=== PATIENT | female | born 1965 | race Caucasian/White ===

== ENCOUNTER 2017-09-26 15:51 | Emergency (ER) | payer MEDICARE, MEDICAID ==
[~2017-09-26] VITALS: Ht 584.7 cm; Wt 47.7 kg
[~2017-09-26 15:51] MED LIST: BACL10TA PO; CALCITROL; SACC250C PO; TRAM50TA2 PO; ZOLP10TA5 PO
[2017-09-26] MEDS ORDERED: ketorolac tromethamine 15mg/ml inj. IM ONE (17:20)
[2017-09-26] MEDS ORDERED: NAPR-56 PO (17:28)
[2017-09-26 17:40] VITALS: BP 121/66
== END 2017-09-26 17:41 | disposition home or self-care (01) ==
LOC: ER 15:52
DX: M25.511 Pain in right shoulder (principal); G89.29 Other chronic pain; Z88.8 Allergy status to other drugs, medicaments and biological substances; Z79.899 Other long term (current) drug therapy
CPT/HCPCS: 96372; 99283; J1885

== ENCOUNTER 2017-11-29 14:42 | Emergency (ER) | payer MEDICARE, MEDICAID ==
[~2017-11-29] VITALS: Ht 162.6 cm; Wt 52.0 kg
[2017-11-29 15:07] LABS: BASOPHILS % (AUTO) 0.6 % (0-1); EOSINOPHILS % (AUTO) 0.2 % (0-6); HEMATOCRIT 37.9 % (35.0-45.0); HEMOGLOBIN 12.7 g/dl (12.0-16.0); LYMPHOCYTES # (AUTO) 1.4 X10'3 (1.1-4.8); LYMPHOCYTES % (AUTO) 17.6 % (21-51); MEAN CORPUSCULAR HEMOGLOBIN 29.9 PG (27.0-31.0); MEAN CORPUSCULAR HGB CONC 33.5 % (33.0-36.5); MEAN CORPUSCULAR VOLUME 89.1 FL (78-98); MEAN PLATELET VOLUME 8.9 FL (7.4-10.4); MONOCYTES # (AUTO) 0.6 X10'3 (0-0.9); NEUTROPHILS # (AUTO) 5.9 X10'3 (1.8-7.7); NEUTROPHILS % (AUTO) 74.6 % (42-75); PLATELET COUNT 202 X10'3 (140-440); RED BLOOD COUNT 4.26 X10'6 (4.20-5.60); RED CELL DISTRIBUTION WIDTH 13.3 % (11.5-14.5)
[2017-11-29 15:17] LABS: PARTIAL THROMBOPLASTIN TIME 29 SECONDS (22-32); PROTHROMBIN TIME 10.7 SECONDS (9.0-12.0)
[2017-11-29] MEDS ORDERED: ketorolac tromethamine 15mg/ml inj. IM ONE (15:25)
[2017-11-29 15:26] LABS: ALANINE AMINOTRANSFERASE 36 U/L (12-78); ALBUMIN 3.2 G/DL (3.4-5.0); ALBUMIN/GLOBULIN RATIO 0.8 (1.1-1.5); ALKALINE PHOSPHATASE 73 IU/L (46-116); ANION GAP 5 (8-16); ASPARTATE AMINO TRANSFERASE 37 U/L (10-37); BILIRUBIN,TOTAL 0.3 MG/DL (0.1-1.0); BLOOD UREA NITROGEN 18 MG/DL (7-18); CALCIUM 8.7 MG/DL (8.5-10.1); CHLORIDE 105 MMOL/L (99-107); GLUCOSE 85 MG/DL (70-104); POTASSIUM 4.2 MMOL/L (3.5-5.1); SODIUM 141 MMOL/L (135-145); TOTAL CARBON DIOXIDE 30.9 MMOL/L (24-32); TOTAL PROTEIN 7.1 G/DL (6.4-8.2); eGFR > 90 ML/MIN
[2017-11-29 16:27] VITALS: BP 103/68
== END 2017-11-29 16:29 | disposition home or self-care (01) ==
LOC: ER 14:43
DX: M75.51 Bursitis of right shoulder (principal); M19.90 Unspecified osteoarthritis, unspecified site; M41.84 Other forms of scoliosis, thoracic region; K21.9 Gastro-esophageal reflux disease without esophagitis; G89.29 Other chronic pain; G82.20 Paraplegia, unspecified; Z90.49 Acquired absence of other specified parts of digestive tract; Z90.710 Acquired absence of both cervix and uterus; Z98.890 Other specified postprocedural states; Z88.8 Allergy status to other drugs, medicaments and biological substances; Z79.899 Other long term (current) drug therapy
CPT/HCPCS: 36415; 71045; 73030; 80053; 84484; 85025; 85610; 85730; 93005; 96372; 99285; J1885

== ENCOUNTER 2018-04-05 15:22 | Inpatient (IN) | payer MEDICARE, MEDICAID ==
[~2018-04-05] VITALS: Ht 170.2 cm; Wt 47.7 kg
[2018-04-05 17:27] LABS: BASOPHILS % (AUTO) 0.1 % (0-1); EOSINOPHILS % (AUTO) 0 % (0-6); HEMATOCRIT 41.2 % (35.0-45.0); HEMOGLOBIN 13.4 g/dl (12.0-16.0); LYMPHOCYTES # (AUTO) 1.2 X10'3 (1.1-4.8); LYMPHOCYTES % (AUTO) 19.4 % (21-51); MEAN CORPUSCULAR HGB CONC 32.6 % (33.0-36.5); MEAN CORPUSCULAR VOLUME 88.8 FL (78-98); MEAN PLATELET VOLUME 9.6 FL (7.4-10.4); MONOCYTES # (AUTO) 0.3 X10'3 (0-0.9); MONOCYTES % (AUTO) 5.1 % (2-12); NEUTROPHILS # (AUTO) 4.9 X10'3 (1.8-7.7); NEUTROPHILS % (AUTO) 75.4 % (42-75); PLATELET COUNT 229 X10'3 (140-440); RED BLOOD COUNT 4.63 X10'6 (4.20-5.60); RED CELL DISTRIBUTION WIDTH 13.5 % (11.5-14.5); WHITE BLOOD COUNT 6.4 X10'3 (4.5-11.0)
[2018-04-05 17:41] LABS: INR 1.1 INR; PARTIAL THROMBOPLASTIN TIME 29 SECONDS (22-32); PROTHROMBIN TIME 10.7 SECONDS (9.0-12.0)
[2018-04-05 17:45] LABS: ALANINE AMINOTRANSFERASE 18 U/L (12-78); ALBUMIN 3.9 G/DL (3.4-5.0); ALKALINE PHOSPHATASE 83 IU/L (46-116); ANION GAP 7 (8-16); ASPARTATE AMINO TRANSFERASE 14 U/L (10-37); BILIRUBIN,TOTAL 0.3 MG/DL (0.1-1.0); BLOOD UREA NITROGEN 21 MG/DL (7-18); CALCIUM 9.2 MG/DL (8.5-10.1); CHLORIDE 104 MMOL/L (99-107); CREATININE 0.42 MG/DL (0.40-0.90); GLUCOSE 98 MG/DL (70-104); POTASSIUM 3.7 MMOL/L (3.5-5.1); SODIUM 141 MMOL/L (135-145); TOTAL CARBON DIOXIDE 30.2 MMOL/L (24-32); eGFR > 90 ML/MIN
[2018-04-05] MEDS: fentaNYL/PF 50MCG/1 ML 2ML syringe IV ONE ×2 (17:55→18:38)
[2018-04-05 18:13] LABS: CLARITY,URINE CLEAR (Clear); COLOR,URINE YELLOW (Yellow); GLUCOSE, URINE NEGATIVE (Neg); KETONES,URINE NEGATIVE (Neg); LEUKOCYTE ESTERASE ,URINE NEGATIVE (Neg); NITRITES, URINE POSITIVE (Neg); OCCULT BLOOD,URINE NEGATIVE (Neg); PROTEIN,URINE NEGATIVE (Neg); UA COLLECTION TYPE FOLEY CATH; UROBILINOGEN,URINE 0.2 E.U/dL (0.2-1.0)
[2018-04-05 18:24] LABS: BACTERIA,URINE 4+ /HPF (Neg); RBC,URINE 0-2 /HPF (0-2); SQUAMOUS EPITHELIAL CELL,UR FEW /LPF (FEW)
[2018-04-05 18:25] LABS: MUCUS STRANDS NONE SEEN /LPF (Neg)
[2018-04-05] MEDS ORDERED: BACL20TA PO (18:46)
[2018-04-05] MEDS ORDERED: TRAM50TA2 PO (18:46)
[2018-04-05] MEDS ORDERED: ZOLP10TA5 PO (18:47)
[2018-04-05] MEDS ORDERED: temazepam 15mg capsule PO PRN (21:00)
[2018-04-05] MEDS ORDERED: normal saline 500ml IV soln 1,000 ML IV ONE (21:20)
[2018-04-05] MEDS ORDERED: normal saline 250ml IV soln 250 ML IV ONE (22:25)
[2018-04-05] MEDS: normal saline 1000ml 1,000 ML IV SCH (22:25)
[2018-04-05] MEDS ORDERED: magnesium hydroxide 30ml (MOM) UD suspension PO PRN (22:25)
[2018-04-05] MEDS ORDERED: non-formulary drug (Zolpidem Tartrate* (Ambien*) 1 TAB) PO PRN (22:25)
[2018-04-05] MEDS ORDERED: HYDROmorphone 1 mg/ml syringe IV PRN (22:25)
[2018-04-05] MEDS ORDERED: diphenhydrAMINE 50 mg/ml inj IV PRN (22:25)
[2018-04-05] MEDS ORDERED: metoclopramide 5 mg/ml inj IV PRN (22:25)
[2018-04-05] MEDS ORDERED: acetaminophen 650mg rectal suppository RC PRN (22:25)
[2018-04-05] MEDS ORDERED: morphine 2 MG/ML inj. syringe IV PRN (22:25)
[2018-04-05] MEDS ORDERED: ondansetron/PF 4mg/2ml inj IV PRN (22:25)
[2018-04-05] MEDS ORDERED: diphenhydrAMINE 25mg capsule PO PRN (22:25)
[2018-04-05] MEDS ORDERED: bisacodyl 10mg suppository rectal RC PRN (22:25)
[2018-04-05] MEDS ORDERED: mag hydrox/Alum hydrox/simeth 30ml oral suspension PO PRN (22:25)
[2018-04-05] MEDS: pantoprazole 40 MG vial IV SCH (23:12)
[2018-04-05 23:35] VITALS: BP 134/48
[2018-04-05 23:44] LABS: INR 1.1 INR; PARTIAL THROMBOPLASTIN TIME 26 SECONDS (22-32); PROTHROMBIN TIME 10.9 SECONDS (9.0-12.0)
[2018-04-05 23:52] LABS: MAGNESIUM 1.7 MG/DL (1.5-2.4); PHOSPHORUS 2.9 MG/DL (2.3-4.5)
[2018-04-06] MEDS: CefTRIAXone/D5W-Rocephin 1gm 50 ML IV SCH ×2 (01:41→07:10)
[2018-04-06 06:00] VITALS: BP 86/57
[2018-04-06 06:02] LABS: BASOPHILS % (AUTO) 0 % (0-1); EOSINOPHILS # (AUTO) 0.1 X10'3 (0-0.9); EOSINOPHILS % (AUTO) 0.9 % (0-6); HEMATOCRIT 32.3 % (35.0-45.0); HEMOGLOBIN 10.6 g/dl (12.0-16.0); LYMPHOCYTES # (AUTO) 1.3 X10'3 (1.1-4.8); LYMPHOCYTES % (AUTO) 14.2 % (21-51); MEAN CORPUSCULAR HEMOGLOBIN 28.9 PG (27.0-31.0); MEAN CORPUSCULAR HGB CONC 32.7 % (33.0-36.5); MEAN CORPUSCULAR VOLUME 88.4 FL (78-98); MEAN PLATELET VOLUME 9.9 FL (7.4-10.4); MONOCYTES # (AUTO) 0.6 X10'3 (0-0.9); MONOCYTES % (AUTO) 6.6 % (2-12); NEUTROPHILS # (AUTO) 7.1 X10'3 (1.8-7.7); NEUTROPHILS % (AUTO) 78.3 % (42-75); PLATELET COUNT 183 X10'3 (140-440); RED BLOOD COUNT 3.66 X10'6 (4.20-5.60); RED CELL DISTRIBUTION WIDTH 13.8 % (11.5-14.5); WHITE BLOOD COUNT 9.1 X10'3 (4.5-11.0)
[2018-04-06 07:02] LABS: ALANINE AMINOTRANSFERASE 15 U/L (12-78); ALBUMIN 3.3 G/DL (3.4-5.0); ALKALINE PHOSPHATASE 70 IU/L (46-116); ANION GAP 9 (8-16); ASPARTATE AMINO TRANSFERASE 12 U/L (10-37); BILIRUBIN,TOTAL 0.3 MG/DL (0.1-1.0); BLOOD UREA NITROGEN 19 MG/DL (7-18); BUN/CREATININE RATIO 44.2 (6.6-38.0); CALCIUM 8.5 MG/DL (8.5-10.1); CHLORIDE 107 MMOL/L (99-107); CREATININE 0.43 MG/DL (0.40-0.90); GLUCOSE 110 MG/DL (70-104); POTASSIUM 3.8 MMOL/L (3.5-5.1); SODIUM 141 MMOL/L (135-145); TOTAL CARBON DIOXIDE 25.2 MMOL/L (24-32); TOTAL PROTEIN 6.6 G/DL (6.4-8.2); eGFR > 90 ML/MIN
[2018-04-06] MEDS: pantoprazole 40 MG vial IV SCH (07:10)
[2018-04-06] MEDS ORDERED: traMADol 50MG tablet PO SCH (08:00)
[2018-04-06] MEDS: docusate sod 100mg capsule PO SCH ×2 (08:00→20:00)
[2018-04-06] MEDS ORDERED: CefTRIAXone/D5W-Rocephin 1gm 50 ML IV SCH (08:00)
[2018-04-06] MEDS ORDERED: BACLOFEN PO SCH (08:00)
[2018-04-06] MEDS: baclofen 10mg tablet PO SCH ×3 (09:54→19:28)
[2018-04-06] MEDS: normal saline 1000ml 1,000 ML IV SCH ×2 (09:59→19:24)
[2018-04-06 10:00] VITALS: BP 95/39
[2018-04-06] MEDS ORDERED: TRAM50TA2 PO (10:04)
[2018-04-06] MEDS: HYDROcodone/acetaminophen 5mg/325mg tablet PO PRN ×3 (12:46→23:46)
[2018-04-06] MEDS ORDERED: CALC0.2511 PO (17:04)
[2018-04-06 18:00] VITALS: BP 100/56
[2018-04-06] MEDS: traMADol 50MG tablet PO PRN (18:28)
[2018-04-06] MEDS: calcitriol 0.25mcg capsule PO SCH (19:27)
[2018-04-06] MEDS ORDERED: CALCITRIOL 0.25 MCG PO SCH (20:00)
[2018-04-06 22:00] VITALS: BP 114/61
[2018-04-07] VITALS (18 sets, daily range): BP systolic 83–121; BP diastolic 39–64
[2018-04-07] MEDS: traMADol 50MG tablet PO PRN ×3 (00:17→19:14)
[2018-04-07] MEDS: zolpidem 5mg tablet PO PRN (00:17)
[2018-04-07] MEDS: normal saline 1000ml 1,000 ML IV SCH ×2 (04:25→14:25)
[2018-04-07 06:36] LABS: BASOPHILS % (AUTO) 0.3 % (0-1); EOSINOPHILS # (AUTO) 0.1 X10'3 (0-0.9); HEMATOCRIT 24.2 % (35.0-45.0); LYMPHOCYTES # (AUTO) 1.3 X10'3 (1.1-4.8); LYMPHOCYTES % (AUTO) 20.9 % (21-51); MEAN CORPUSCULAR HEMOGLOBIN 29.2 PG (27.0-31.0); MEAN CORPUSCULAR VOLUME 88.5 FL (78-98); MEAN PLATELET VOLUME 9.6 FL (7.4-10.4); MONOCYTES # (AUTO) 0.7 X10'3 (0-0.9); MONOCYTES % (AUTO) 10.6 % (2-12); NEUTROPHILS # (AUTO) 4.2 X10'3 (1.8-7.7); NEUTROPHILS % (AUTO) 67.2 % (42-75); PLATELET COUNT 132 X10'3 (140-440); RED BLOOD COUNT 2.74 X10'6 (4.20-5.60); RED CELL DISTRIBUTION WIDTH 13.6 % (11.5-14.5); WHITE BLOOD COUNT 6.2 X10'3 (4.5-11.0)
[2018-04-07 06:47] LABS: ALANINE AMINOTRANSFERASE 15 U/L (12-78); ALBUMIN 2.6 G/DL (3.4-5.0); ALBUMIN/GLOBULIN RATIO 0.9 (1.1-1.5); ALKALINE PHOSPHATASE 52 IU/L (46-116); ANION GAP 6 (8-16); ASPARTATE AMINO TRANSFERASE 11 U/L (10-37); BILIRUBIN,TOTAL 0.2 MG/DL (0.1-1.0); BLOOD UREA NITROGEN 12 MG/DL (7-18); BUN/CREATININE RATIO 54.5 (6.6-38.0); CALCIUM 8.1 MG/DL (8.5-10.1); CHLORIDE 109 MMOL/L (99-107); CREATININE 0.22 MG/DL (0.40-0.90); GLUCOSE 102 MG/DL (70-104); POTASSIUM 3.7 MMOL/L (3.5-5.1); SODIUM 141 MMOL/L (135-145); TOTAL CARBON DIOXIDE 26.5 MMOL/L (24-32); TOTAL PROTEIN 5.5 G/DL (6.4-8.2); eGFR > 90 ML/MIN
[2018-04-07] MEDS: pantoprazole 40 MG vial IV SCH (07:07)
[2018-04-07] MEDS ORDERED: fentaNYL/PF 50MCG/1 ML 2ML syringe ONE (07:59)
[2018-04-07] MEDS: calcitriol 0.25mcg capsule PO SCH ×2 (08:00→20:12)
[2018-04-07] MEDS: baclofen 10mg tablet PO SCH ×3 (08:00→20:12)
[2018-04-07] MEDS: docusate sod 100mg capsule PO SCH ×2 (08:00→20:00)
[2018-04-07] MEDS: CefTRIAXone/D5W-Rocephin 1gm 50 ML IV SCH (08:00)
[2018-04-07] MEDS ORDERED: midazolam 2 mg/2 ml injection ONE (08:00)
[2018-04-07] MEDS ORDERED: sevoflurane 250ml liquid IH ONE (08:10)
[2018-04-07] MEDS ORDERED: meperidine/PF 50mg/ml syringe ONE (10:20)
[2018-04-07] MEDS ORDERED: ondansetron/PF 4mg/2ml inj ONE (10:54)
[2018-04-07] MEDS ORDERED: rocuronium 10mg/ml inj IV ONE (10:54)
[2018-04-07] MEDS ORDERED: glycopyrrolate 0.2mg/ml inj ONE (10:54)
[2018-04-07] MEDS ORDERED: propofol inj 20 ML IV ONE (10:54)
[2018-04-07] MEDS ORDERED: phenylephrine 10mg/ml inj. ONE (10:54)
[2018-04-07] MEDS ORDERED: neostigmine methylsulfate 1 MG/ML 10ml vial ONE (10:54)
[2018-04-07] MEDS ORDERED: LIDOcaine 2% (20mg/ml) 5ml vial ONE (10:54)
[2018-04-07] MEDS: acetaminophen 325mg tablet PO PRN (14:47)
[2018-04-07] MEDS ORDERED: acetaminophen 325mg tablet PO ONE (21:55)
[2018-04-07] MEDS ORDERED: normal saline 500ml IV soln 1,000 ML IV ONE (22:05)
[2018-04-08] MEDS: normal saline 1000ml 1,000 ML IV SCH ×3 (00:25→23:09)
[2018-04-08] MEDS: traMADol 50MG tablet PO PRN ×3 (01:28→20:17)
[2018-04-08 02:00] VITALS: BP 98/50
[2018-04-08 06:00] VITALS: BP 93/40
[2018-04-08 07:21] LABS: ALANINE AMINOTRANSFERASE 31 U/L (12-78); ALBUMIN 2.7 G/DL (3.4-5.0); ALBUMIN/GLOBULIN RATIO 1.1 (1.1-1.5); ALKALINE PHOSPHATASE 43 IU/L (46-116); ANION GAP 9 (8-16); ASPARTATE AMINO TRANSFERASE 19 U/L (10-37); BILIRUBIN,TOTAL 0.4 MG/DL (0.1-1.0); BLOOD UREA NITROGEN 8 MG/DL (7-18); CALCIUM 7.9 MG/DL (8.5-10.1); CHLORIDE 108 MMOL/L (99-107); CREATININE 0.32 MG/DL (0.40-0.90); GLUCOSE 107 MG/DL (70-104); POTASSIUM 3.4 MMOL/L (3.5-5.1); SODIUM 140 MMOL/L (135-145); TOTAL CARBON DIOXIDE 23.2 MMOL/L (24-32); TOTAL PROTEIN 5.2 G/DL (6.4-8.2); eGFR > 90 ML/MIN
[2018-04-08 07:55] LABS: BASOPHILS % (AUTO) 0.2 % (0-1); EOSINOPHILS % (AUTO) 0 % (0-6); LYMPHOCYTES # (AUTO) 0.9 X10'3 (1.1-4.8); LYMPHOCYTES % (AUTO) 11.6 % (21-51); MEAN CORPUSCULAR HGB CONC 32.7 % (33.0-36.5); MEAN CORPUSCULAR VOLUME 88.9 FL (78-98); MEAN PLATELET VOLUME 9.3 FL (7.4-10.4); MONOCYTES # (AUTO) 0.7 X10'3 (0-0.9); MONOCYTES % (AUTO) 8.1 % (2-12); NEUTROPHILS # (AUTO) 6.5 X10'3 (1.8-7.7); NEUTROPHILS % (AUTO) 80.1 % (42-75); PLATELET COUNT 113 X10'3 (140-440); RED BLOOD COUNT 1.93 X10'6 (4.20-5.60); RED CELL DISTRIBUTION WIDTH 13.9 % (11.5-14.5); WHITE BLOOD COUNT 8.1 X10'3 (4.5-11.0)
[2018-04-08 08:03] LABS: HEMATOCRIT 17.2 % (35.0-45.0)
[2018-04-08 08:04] LABS: HEMOGLOBIN 5.6 g/dl (12.0-16.0)
[2018-04-08] MEDS: HYDROcodone/acetaminophen 5mg/325mg tablet PO PRN (09:12)
[2018-04-08] MEDS ORDERED: SUMAtriptan 25 MG tablet PO ONE (09:40)
[2018-04-08] MEDS: CefTRIAXone/D5W-Rocephin 1gm 50 ML IV SCH (09:48)
[2018-04-08] MEDS: pantoprazole 40 MG vial IV SCH (09:48)
[2018-04-08] MEDS: calcitriol 0.25mcg capsule PO SCH ×2 (09:49→20:14)
[2018-04-08] MEDS: baclofen 10mg tablet PO SCH ×3 (09:49→20:14)
[2018-04-08] MEDS: docusate sod 100mg capsule PO SCH ×3 (09:49→20:14)
[2018-04-08 10:00] VITALS: BP 119/49
[2018-04-08] MEDS: Protein Smoothie (high protein) 240ml (8oz) cup PO SCH (17:30)
[2018-04-08 18:00] VITALS: BP 115/74
[2018-04-08] MEDS: zolpidem 5mg tablet PO PRN (20:17)
[2018-04-08 22:00] VITALS: BP 107/47
[2018-04-08] MEDS: acetaminophen 325mg tablet PO PRN (22:14)
[2018-04-09 02:00] VITALS: BP 104/53
[2018-04-09 06:00] VITALS: BP 128/55
[2018-04-09 06:33] LABS: BASOPHILS % (AUTO) 0 % (0-1); EOSINOPHILS # (AUTO) 0.1 X10'3 (0-0.9); EOSINOPHILS % (AUTO) 1.4 % (0-6); LYMPHOCYTES # (AUTO) 0.9 X10'3 (1.1-4.8); LYMPHOCYTES % (AUTO) 10.2 % (21-51); MEAN CORPUSCULAR HGB CONC 32.5 % (33.0-36.5); MEAN CORPUSCULAR VOLUME 89.2 FL (78-98); MONOCYTES # (AUTO) 0.7 X10'3 (0-0.9); MONOCYTES % (AUTO) 7.8 % (2-12); NEUTROPHILS % (AUTO) 80.6 % (42-75); PLATELET COUNT 139 X10'3 (140-440); RED CELL DISTRIBUTION WIDTH 13.7 % (11.5-14.5); WHITE BLOOD COUNT 8.7 X10'3 (4.5-11.0)
[2018-04-09 06:37] LABS: HEMATOCRIT 16.9 % (35.0-45.0); HEMOGLOBIN 5.5 g/dl (12.0-16.0)
[2018-04-09 07:00] LABS: ALANINE AMINOTRANSFERASE 26 U/L (12-78); ALBUMIN 2.3 G/DL (3.4-5.0); ALBUMIN/GLOBULIN RATIO 0.8 (1.1-1.5); ALKALINE PHOSPHATASE 47 IU/L (46-116); ANION GAP 9 (8-16); ASPARTATE AMINO TRANSFERASE 11 U/L (10-37); BILIRUBIN,TOTAL 0.3 MG/DL (0.1-1.0); BLOOD UREA NITROGEN 8 MG/DL (7-18); BUN/CREATININE RATIO 25.8 (6.6-38.0); CALCIUM 8.2 MG/DL (8.5-10.1); CHLORIDE 108 MMOL/L (99-107); CREATININE 0.31 MG/DL (0.40-0.90); GLUCOSE 100 MG/DL (70-104); POTASSIUM 3.3 MMOL/L (3.5-5.1); SODIUM 140 MMOL/L (135-145); TOTAL PROTEIN 5.1 G/DL (6.4-8.2); eGFR > 90 ML/MIN
[2018-04-09] MEDS: CefTRIAXone/D5W-Rocephin 1gm 50 ML IV SCH (07:32)
[2018-04-09] MEDS: calcitriol 0.25mcg capsule PO SCH ×2 (07:33→20:07)
[2018-04-09] MEDS: baclofen 10mg tablet PO SCH ×3 (07:34→20:07)
[2018-04-09] MEDS: traMADol 50MG tablet PO PRN ×3 (07:35→20:07)
[2018-04-09] MEDS: pantoprazole 40mg Tablet.DR PO SCH (07:36)
[2018-04-09 10:30] VITALS: BP 117/60
[2018-04-09] MEDS ORDERED: potassium chloride 10mEq CAPSULE.SA PO ONE (10:55)
[2018-04-09] MEDS ORDERED: SUMAtriptan 25 MG tablet PO PRN (10:55)
[2018-04-09] MEDS ORDERED: potassium Cl 20 mEq SR tablet PO ONE (11:00)
[2018-04-09] MEDS: normal saline 1000ml 1,000 ML IV SCH ×2 (11:19→16:08)
[2018-04-09] MEDS: Protein Smoothie (high protein) 240ml (8oz) cup PO SCH ×2 (12:30→18:01)
[2018-04-09 18:00] VITALS: BP 112/46
[2018-04-09] MEDS: lactobacillus rhamnosus 10,000 MMU CELLS/CAPSULE PO SCH (20:00)
[2018-04-09] MEDS: docusate sod 100mg capsule PO SCH (20:00)
[2018-04-09] MEDS: zolpidem 5mg tablet PO PRN (20:07)
[2018-04-09 22:00] VITALS: BP 111/32
[2018-04-09] MEDS: acetaminophen 325mg tablet PO PRN (23:54)
[2018-04-10] MEDS: normal saline 1000ml 1,000 ML IV SCH ×3 (02:25→20:26)
[2018-04-10] MEDS: traMADol 50MG tablet PO PRN ×3 (03:44→16:54)
[2018-04-10 05:49] LABS: RED BLOOD COUNT 1.68 X10'6 (4.20-5.60); WHITE BLOOD COUNT 7.4 X10'3 (4.5-11.0)
[2018-04-10 05:51] LABS: HEMOGLOBIN 5.2 g/dl (12.0-16.0)
[2018-04-10 05:52] LABS: BASOPHILS % (AUTO) 0.2 % (0-1); EOSINOPHILS % (AUTO) 0.6 % (0-6); LYMPHOCYTES # (AUTO) 0.7 X10'3 (1.1-4.8); LYMPHOCYTES % (AUTO) 9.6 % (21-51); MEAN CORPUSCULAR HEMOGLOBIN 30.9 PG (27.0-31.0); MEAN CORPUSCULAR HGB CONC 34.6 % (33.0-36.5); MEAN CORPUSCULAR VOLUME 89.3 FL (78-98); MEAN PLATELET VOLUME 8.6 FL (7.4-10.4); MONOCYTES # (AUTO) 0.3 X10'3 (0-0.9); MONOCYTES % (AUTO) 4.5 % (2-12); NEUTROPHILS # (AUTO) 6.4 X10'3 (1.8-7.7); NEUTROPHILS % (AUTO) 85.1 % (42-75); PLATELET COUNT 177 X10'3 (140-440)
[2018-04-10 06:00] VITALS: BP 104/47
[2018-04-10 06:01] LABS: ALANINE AMINOTRANSFERASE 21 U/L (12-78); ALBUMIN/GLOBULIN RATIO 0.7 (1.1-1.5); ALKALINE PHOSPHATASE 47 IU/L (46-116); ANION GAP 5 (8-16); ASPARTATE AMINO TRANSFERASE 9 U/L (10-37); BILIRUBIN,TOTAL 0.3 MG/DL (0.1-1.0); BLOOD UREA NITROGEN 13 MG/DL (7-18); BUN/CREATININE RATIO 37.1 (6.6-38.0); CALCIUM 8.4 MG/DL (8.5-10.1); CHLORIDE 107 MMOL/L (99-107); CREATININE 0.35 MG/DL (0.40-0.90); GLUCOSE 122 MG/DL (70-104); POTASSIUM 3.9 MMOL/L (3.5-5.1); SODIUM 140 MMOL/L (135-145); TOTAL PROTEIN 4.9 G/DL (6.4-8.2); eGFR > 90 ML/MIN
[2018-04-10] MEDS: pantoprazole 40mg Tablet.DR PO SCH (07:30)
[2018-04-10] MEDS: CefTRIAXone/D5W-Rocephin 1gm 50 ML IV SCH (07:30)
[2018-04-10] MEDS: lactobacillus rhamnosus 10,000 MMU CELLS/CAPSULE PO SCH ×2 (08:00→20:00)
[2018-04-10] MEDS: docusate sod 100mg capsule PO SCH ×2 (08:00→20:00)
[2018-04-10] MEDS: calcitriol 0.25mcg capsule PO SCH ×2 (08:24→20:22)
[2018-04-10] MEDS: baclofen 10mg tablet PO SCH ×3 (08:25→20:22)
[2018-04-10] MEDS ORDERED: ondansetron 4mg rapidly disintigrating tab PO ONE (08:35)
[2018-04-10 10:00] VITALS: BP 89/44
[2018-04-10] MEDS: Protein Smoothie (high protein) 240ml (8oz) cup PO SCH ×2 (13:09→17:30)
[2018-04-10 18:00] VITALS: BP 115/70
[2018-04-10 22:00] VITALS: BP 99/67
[2018-04-10] MEDS: ciprofloxacin 250mg tablet PO SCH (22:07)
[2018-04-10] MEDS: zolpidem 5mg tablet PO PRN (22:18)
[2018-04-11] MEDS: normal saline 1000ml 1,000 ML IV SCH ×2 (05:51→20:00)
[2018-04-11 06:00] VITALS: BP 101/49
[2018-04-11 06:08] LABS: BASOPHILS % (AUTO) 0 % (0-1); EOSINOPHILS # (AUTO) 0.1 X10'3 (0-0.9); EOSINOPHILS % (AUTO) 1.3 % (0-6); LYMPHOCYTES # (AUTO) 0.9 X10'3 (1.1-4.8); LYMPHOCYTES % (AUTO) 14.5 % (21-51); MEAN CORPUSCULAR HGB CONC 33.7 % (33.0-36.5); MEAN CORPUSCULAR VOLUME 89.1 FL (78-98); MEAN PLATELET VOLUME 8.1 FL (7.4-10.4); MONOCYTES # (AUTO) 0.3 X10'3 (0-0.9); MONOCYTES % (AUTO) 5.6 % (2-12); NEUTROPHILS # (AUTO) 4.8 X10'3 (1.8-7.7); NEUTROPHILS % (AUTO) 78.6 % (42-75); PLATELET COUNT 234 X10'3 (140-440); RED BLOOD COUNT 1.77 X10'6 (4.20-5.60); WHITE BLOOD COUNT 6.1 X10'3 (4.5-11.0)
[2018-04-11 06:36] LABS: HEMATOCRIT 15.8 % (35.0-45.0); HEMOGLOBIN 5.3 g/dl (12.0-16.0)
[2018-04-11] MEDS: pantoprazole 40mg Tablet.DR PO SCH (07:30)
[2018-04-11] MEDS: docusate sod 100mg capsule PO SCH ×2 (08:00→20:00)
[2018-04-11] MEDS: lactobacillus rhamnosus 10,000 MMU CELLS/CAPSULE PO SCH ×2 (08:00→20:00)
[2018-04-11] MEDS: baclofen 10mg tablet PO SCH ×3 (09:00→21:20)
[2018-04-11] MEDS: calcitriol 0.25mcg capsule PO SCH ×2 (09:00→21:24)
[2018-04-11] MEDS: traMADol 50MG tablet PO PRN ×2 (09:00→16:38)
[2018-04-11 10:00] VITALS: BP 111/61
[2018-04-11] MEDS: ciprofloxacin 250mg tablet PO SCH ×2 (10:39→21:20)
[2018-04-11] MEDS: acetaminophen 325mg tablet PO PRN (10:41)
[2018-04-11] MEDS: Protein Smoothie (high protein) 240ml (8oz) cup PO SCH ×2 (13:36→17:30)
[2018-04-11 18:00] VITALS: BP 104/73
[2018-04-11] MEDS: zolpidem 5mg tablet PO PRN (21:20)
[2018-04-11 22:00] VITALS: BP 108/90
[2018-04-12] MEDS: normal saline 1000ml 1,000 ML IV SCH (05:16)
[2018-04-12 06:00] VITALS: BP 117/46
[2018-04-12] MEDS: lactobacillus rhamnosus 10,000 MMU CELLS/CAPSULE PO SCH (07:22)
[2018-04-12] MEDS: docusate sod 100mg capsule PO SCH (07:22)
[2018-04-12] MEDS: pantoprazole 40mg Tablet.DR PO SCH (07:22)
[2018-04-12] MEDS: traMADol 50MG tablet PO PRN ×2 (07:22→13:19)
[2018-04-12] MEDS: baclofen 10mg tablet PO SCH ×2 (07:22→13:19)
[2018-04-12] MEDS: calcitriol 0.25mcg capsule PO SCH (07:22)
[2018-04-12 10:00] VITALS: BP 127/28
[2018-04-12] MEDS: ciprofloxacin 250mg tablet PO SCH (10:28)
[2018-04-12] MEDS: HYDROcodone/acetaminophen 5mg/325mg tablet PO PRN (10:29)
[2018-04-12] MEDS: Protein Smoothie (high protein) 240ml (8oz) cup PO SCH (13:20)
== END 2018-04-12 14:10 | DRG 480 ==
LOC: ER 15:23 → ED HOLD 22:25 → ORTHO 4S 23:40
PROVIDERS: ADMIT Family Medicine; ATTEND Internal Medicine
PROC: 0QS904Z Reposition Left Femoral Shaft with Internal Fixation Device, Open Approach (ICD-10-PCS; principal; 2018-04-07 08:10)
DX: M80.852A Other osteoporosis with current pathological fracture, left femur, initial encounter for fracture (principal); E43 Unspecified severe protein-calorie malnutrition; G82.20 Paraplegia, unspecified; N39.0 Urinary tract infection, site not specified; D62 Acute posthemorrhagic anemia; Z68.1 Body mass index [BMI] 19.9 or less, adult; G89.29 Other chronic pain; G43.909 Migraine, unspecified, not intractable, without status migrainosus; B96.20 Unspecified Escherichia coli [E. coli] as the cause of diseases classified elsewhere; M24.569 Contracture, unspecified knee; M54.9 Dorsalgia, unspecified; E86.1 Hypovolemia; K21.9 Gastro-esophageal reflux disease without esophagitis; Z53.29 Procedure and treatment not carried out because of patient's decision for other reasons; Z90.49 Acquired absence of other specified parts of digestive tract; Z90.710 Acquired absence of both cervix and uterus; Z99.3 Dependence on wheelchair; Z88.8 Allergy status to other drugs, medicaments and biological substances; Z79.899 Other long term (current) drug therapy; V49.9XXS Car occupant (driver) (passenger) injured in unspecified traffic accident, sequela
CPT/HCPCS: 36415; 73552; 73590; 76000; 80053; 81001; 83605; 83735; 83880; 84100; 84443; 84484; 85025; 85610; 85730; 86885; 86900; 86901; 87040; 87070; 87077; 87088; 87186; 93005; 96374; 97161; 97530; 97535; 99285; A6449; C9113; G0378; J0690; J0696; J1644; J2001; J2175; J2250; J2270; J2370; J2405; J2704; J2710; J3010; J3490; J7030; J7120; L1832

== ENCOUNTER 2018-09-02 14:48 | Emergency (ER) | payer MEDICARE, MEDICAID ==
[~2018-09-02] VITALS: Ht 170.2 cm; Wt 43.2 kg
[~2018-09-02 14:48] MED LIST changes: -BACL10TA PO; +BACL20TA PO; +CALC0.2511 PO; -CALCITROL; -SACC250C PO
[2018-09-02 16:37] VITALS: BP 130/94
[2018-09-02 16:44] LABS: CLARITY,URINE SLIGHTLY CLOUDY (Clear); COLOR,URINE STRAW (Yellow); GLUCOSE, URINE NEGATIVE (Neg); KETONES,URINE NEGATIVE (Neg); LEUKOCYTE ESTERASE ,URINE NEGATIVE (Neg); NITRITES, URINE POSITIVE (Neg); OCCULT BLOOD,URINE NEGATIVE (Neg); PH,URINE 5.5 (4.8-8.0); PROTEIN,URINE NEGATIVE (Neg); UROBILINOGEN,URINE 0.2 E.U/dL (0.2-1.0)
[2018-09-02 16:48] LABS: UA COLLECTION TYPE CLN CATCH MIDSTREAM
[2018-09-02 16:51] LABS: MUCUS STRANDS MODERATE /LPF (Neg); SQUAMOUS EPITHELIAL CELL,UR MODERATE /LPF (FEW)
[2018-09-02 16:52] LABS: TRANSITIONAL EPI CELLS,URINE FEW /HPF
[2018-09-02 16:53] LABS: BACTERIA,URINE 4+ /HPF (Neg); RBC,URINE 0-2 /HPF (0-2)
== END 2018-09-02 17:22 | disposition home or self-care (01) ==
LOC: ER 14:48
DX: S80.12XA Contusion of left lower leg, initial encounter (principal); K21.9 Gastro-esophageal reflux disease without esophagitis; G89.29 Other chronic pain; Z90.49 Acquired absence of other specified parts of digestive tract; Z90.710 Acquired absence of both cervix and uterus; Z98.890 Other specified postprocedural states; Z88.8 Allergy status to other drugs, medicaments and biological substances; Z79.899 Other long term (current) drug therapy; X58.XXXA Exposure to other specified factors, initial encounter; Y93.89 Activity, other specified; Y92.89 Other specified places as the place of occurrence of the external cause; Y99.8 Other external cause status
CPT/HCPCS: 73630; 81001; 87088; 93971; 99284

== ENCOUNTER 2018-12-05 14:15 | Emergency (ER) | payer MEDICARE, MEDICAID ==
[~2018-12-05] VITALS: Ht 170.2 cm; Wt 44.5 kg
[2018-12-05] MEDS ORDERED: normal saline 1000ML IV soln IVB ONE (14:45)
[2018-12-05 15:01] LABS: BASOPHILS % (AUTO) 0.7 % (0-1); EOSINOPHILS % (AUTO) 0.9 % (0-6); HEMATOCRIT 44.1 % (35.0-45.0); HEMOGLOBIN 14.4 g/dl (12.0-16.0); LYMPHOCYTES # (AUTO) 1.7 X10'3 (1.1-4.8); LYMPHOCYTES % (AUTO) 31.9 % (21-51); MEAN CORPUSCULAR HEMOGLOBIN 29.8 PG (27.0-31.0); MEAN CORPUSCULAR HGB CONC 32.7 g/dL (33.0-36.5); MEAN CORPUSCULAR VOLUME 91.3 FL (78-98); MEAN PLATELET VOLUME 8.9 FL (7.4-10.4); MONOCYTES # (AUTO) 0.4 X10'3 (0-0.9); MONOCYTES % (AUTO) 7.7 % (2-12); NEUTROPHILS # (AUTO) 3.1 X10'3 (1.8-7.7); NEUTROPHILS % (AUTO) 58.8 % (42-75); PLATELET COUNT 183 X10'3 (140-440); RED BLOOD COUNT 4.83 X10'6 (4.20-5.60); RED CELL DISTRIBUTION WIDTH 13.3 % (11.5-14.5); WHITE BLOOD COUNT 5.3 X10'3 (4.5-11.0)
--- NOTE | 2018-12-05 15:03 | NUR ---
PT OUT TO CT VIA WHEELCHAIR WITH ROLL TENSION TESTER
[2018-12-05 15:16] LABS: ALANINE AMINOTRANSFERASE 24 U/L (12-78); ALBUMIN 3.7 G/DL (3.4-5.0); ALBUMIN/GLOBULIN RATIO 0.9 (1.1-1.5); ALKALINE PHOSPHATASE 73 IU/L (46-116); ANION GAP 6 (8-16); ASPARTATE AMINO TRANSFERASE 12 U/L (10-37); BILIRUBIN,TOTAL 0.3 MG/DL (0.1-1.0); BLOOD UREA NITROGEN 16 MG/DL (7-18); BUN/CREATININE RATIO 47.1 (6.6-38.0); CALCIUM 8.7 MG/DL (8.5-10.1); CHLORIDE 106 MMOL/L (99-107); CREATININE 0.34 MG/DL (0.40-0.90); GLUCOSE 75 MG/DL (70-104); LIPASE 76 U/L (73-393); SODIUM 143 MMOL/L (135-145); TOTAL CARBON DIOXIDE 30.7 MMOL/L (24-32); TOTAL PROTEIN 7.7 G/DL (6.4-8.2); eGFR > 90 ML/MIN
[2018-12-05 17:35] LABS: URINE HCG NEGATIVE (NEG)
[2018-12-05 17:40] LABS: CLARITY,URINE CLOUDY (Clear); COLOR,URINE YELLOW (Yellow); GLUCOSE, URINE NEGATIVE (Neg); KETONES,URINE 15 mg/dl (Neg); LEUKOCYTE ESTERASE ,URINE TRACE (Neg); NITRITES, URINE POSITIVE (Neg); OCCULT BLOOD,URINE NEGATIVE (Neg); PH,URINE 5.5 (4.8-8.0); PROTEIN,URINE NEGATIVE (Neg); UA COLLECTION TYPE STRAIGHT CATH; UROBILINOGEN,URINE 0.2 E.U/dL (0.2-1.0)
[2018-12-05 17:57] LABS: SQUAMOUS EPITHELIAL CELL,UR MANY /LPF (FEW)
[2018-12-05 17:59] LABS: BACTERIA,URINE 4+ /HPF (Neg); RBC,URINE 0-2 /HPF (0-2)
[2018-12-05] MEDS ORDERED: CefTRIAXone/D5W-Rocephin 1gm 50 ML IV ONE (18:20)
[2018-12-05] MEDS ORDERED: SULF1TAB49 PO (18:21)
[2018-12-05 19:09] VITALS: BP 139/60
== END 2018-12-05 19:15 | disposition home or self-care (01) ==
LOC: ER 14:15
DX: N39.0 Urinary tract infection, site not specified (principal); K21.9 Gastro-esophageal reflux disease without esophagitis; G89.29 Other chronic pain; Z86.2 Personal history of diseases of the blood and blood-forming organs and certain disorders involving the immune mechanism; Z90.49 Acquired absence of other specified parts of digestive tract; Z90.710 Acquired absence of both cervix and uterus; Z98.890 Other specified postprocedural states; Z88.8 Allergy status to other drugs, medicaments and biological substances; Z79.899 Other long term (current) drug therapy
CPT/HCPCS: 36415; 74176; 80053; 81001; 81025; 83690; 85025; 87077; 87088; 87186; 96365; 99284; J0696; J7030; P9612

== ENCOUNTER 2019-03-26 16:15 | Emergency (ER) | payer MEDICARE, MEDICAID ==
[~2019-03-26] VITALS: Ht 170.2 cm; Wt 44.1 kg
[2019-03-26 16:20] VITALS: BP 115/68
[2019-03-26] MEDS ORDERED: ketorolac trometh inj. 60 MG/2 ML VIAL IM ONE ×2 (16:55→17:00)
[2019-03-26] MEDS ORDERED: traMADol 50MG tablet PO ONE (16:55)
[2019-03-26] MEDS ORDERED: TRAM50TA2 PO (16:56)
[2019-03-26] MEDS ORDERED: CLOT15CR73 TP (17:14)
== END 2019-03-26 17:18 | disposition home or self-care (01) ==
LOC: ER 16:16
DX: M25.511 Pain in right shoulder (principal); G89.29 Other chronic pain; B35.3 Tinea pedis; K21.9 Gastro-esophageal reflux disease without esophagitis; Z86.2 Personal history of diseases of the blood and blood-forming organs and certain disorders involving the immune mechanism; Z90.49 Acquired absence of other specified parts of digestive tract; Z90.710 Acquired absence of both cervix and uterus; Z98.890 Other specified postprocedural states; Z88.8 Allergy status to other drugs, medicaments and biological substances; Z79.899 Other long term (current) drug therapy
CPT/HCPCS: 96372; 99284; J1885

== ENCOUNTER 2021-11-11 15:10 | Emergency (ER) | payer MEDICARE, MEDICAID ==
[~2021-11-11] VITALS: Ht 170.2 cm; Wt 47.7 kg
[~2021-11-11 15:10] MED LIST changes: +CLOT15CR73 TP
[2021-11-11 19:37] LABS: BASOPHILS % (AUTO) 0.6 % (0-1); EOSINOPHILS % (AUTO) 1.1 % (0-6); HEMATOCRIT 43.5 % (35.0-45.0); HEMOGLOBIN 14.5 g/dl (12.0-16.0); LYMPHOCYTES % (AUTO) 26.7 % (21-51); MEAN CORPUSCULAR HEMOGLOBIN 29.6 PG (27.0-31.0); MEAN CORPUSCULAR HGB CONC 33.4 g/dL (33.0-36.5); MEAN CORPUSCULAR VOLUME 88.5 FL (78-98); MEAN PLATELET VOLUME 8.1 FL (7.4-10.4); MONOCYTES # (AUTO) 0.3 X10'3 (0-0.9); MONOCYTES % (AUTO) 9.2 % (2-12); NEUTROPHILS # (AUTO) 2.4 X10'3 (1.8-7.7); NEUTROPHILS % (AUTO) 62.4 % (42-75); PLATELET COUNT 200 X10'3 (140-440); RED BLOOD COUNT 4.91 X10'6 (4.20-5.60); RED CELL DISTRIBUTION WIDTH 12.9 % (11.5-14.5); WHITE BLOOD COUNT 3.8 X10'3 (4.5-11.0)
[2021-11-11 19:49] LABS: ALANINE AMINOTRANSFERASE 54 U/L (12-78); ALBUMIN 3.5 G/DL (3.4-5.0); ALBUMIN/GLOBULIN RATIO 0.8 (1.1-1.5); ALKALINE PHOSPHATASE 94 IU/L (46-116); ANION GAP 8 (8-16); ASPARTATE AMINO TRANSFERASE 36 U/L (10-37); BILIRUBIN,TOTAL 0.3 MG/DL (0.1-1.0); BLOOD UREA NITROGEN 18 MG/DL (7-18); CHLORIDE 102 MMOL/L (99-107); GLUCOSE 105 MG/DL (70-104); LIPASE 198 U/L (73-393); POTASSIUM 3.7 MMOL/L (3.5-5.1); SODIUM 141 MMOL/L (135-145); TOTAL CARBON DIOXIDE 31.5 MMOL/L (24-32); TOTAL PROTEIN 7.7 G/DL (6.4-8.2); eGFR > 90 ML/MIN
[2021-11-11] MEDS ORDERED: LIDOcaine Viscous 15ml cup MM ONE (21:00)
[2021-11-11] MEDS ORDERED: ondansetron 4mg rapidly disintigrating tab PO ONE (21:00)
[2021-11-11] MEDS ORDERED: mag hydrox/Alum hydrox/simeth 30ml oral suspension PO ONE (21:00)
[2021-11-11] MEDS ORDERED: famotidine 20mg tablet PO ONE (21:00)
[2021-11-11 21:34] LABS: CLARITY,URINE SLIGHTLY CLOUDY (Clear); COLOR,URINE YELLOW (Yellow); GLUCOSE, URINE NEGATIVE (Neg); KETONES,URINE 15 mg/dl (Neg); LEUKOCYTE ESTERASE ,URINE SMALL (Neg); NITRITES, URINE POSITIVE (Neg); OCCULT BLOOD,URINE MODERATE (Neg); PH,URINE 5.5 (4.8-8.0); PROTEIN,URINE NEGATIVE (Neg); UROBILINOGEN,URINE 0.2 E.U/dL (0.2-1.0)
[2021-11-11 21:40] LABS: UA COLLECTION TYPE STRAIGHT CATH
[2021-11-11 21:42] LABS: BACTERIA,URINE 1+ /HPF (Neg); RBC,URINE 20-50 /HPF (0-2); SQUAMOUS EPITHELIAL CELL,UR FEW /LPF (FEW)
[2021-11-11] MEDS ORDERED: ONDA4TAB12 PO (22:02)
[2021-11-11] MEDS ORDERED: PANT-47 PO (22:02)
[2021-11-11 22:20] VITALS: BP 117/72
== END 2021-11-11 22:23 | disposition home or self-care (01) ==
LOC: ER 15:10
DX: K29.70 Gastritis, unspecified, without bleeding (principal)
CPT/HCPCS: 36415; 74176; 80053; 81001; 83690; 85025; 87077; 87088; 87186; 99284; A4353

== ENCOUNTER 2022-05-16 16:05 | Emergency (ER) | payer MEDICARE, MEDICAID ==
[~2022-05-16] VITALS: Ht 167.6 cm; Wt 40.9 kg
[~2022-05-16 16:05] MED LIST changes: +ONDA4TAB12 PO; +PANT-47 PO
[2022-05-16 17:04] LABS: BASOPHILS % (AUTO) 0.2 % (0-1); EOSINOPHILS % (AUTO) 0.1 % (0-6); HEMATOCRIT 37.6 % (35.0-45.0); HEMOGLOBIN 12.6 g/dl (12.0-16.0); LYMPHOCYTES # (AUTO) 0.9 X10'3 (1.1-4.8); LYMPHOCYTES % (AUTO) 7.1 % (21-51); MEAN CORPUSCULAR HEMOGLOBIN 28.9 PG (27.0-31.0); MEAN CORPUSCULAR HGB CONC 33.5 g/dL (33.0-36.5); MEAN CORPUSCULAR VOLUME 86.3 FL (78-98); MEAN PLATELET VOLUME 8.3 FL (7.4-10.4); MONOCYTES # (AUTO) 0.6 X10'3 (0-0.9); NEUTROPHILS # (AUTO) 10.7 X10'3 (1.8-7.7); NEUTROPHILS % (AUTO) 87.6 % (42-75); PLATELET COUNT 169 X10'3 (140-440); RED BLOOD COUNT 4.36 X10'6 (4.20-5.60); RED CELL DISTRIBUTION WIDTH 13.8 % (11.5-14.5); WHITE BLOOD COUNT 12.2 X10'3 (4.5-11.0)
[2022-05-16 17:19] LABS: ALANINE AMINOTRANSFERASE 152 U/L (12-78); ALBUMIN/GLOBULIN RATIO 0.7 (1.1-1.5); ALKALINE PHOSPHATASE 143 IU/L (46-116); ANION GAP 11 (8-16); ASPARTATE AMINO TRANSFERASE 31 U/L (10-37); BILIRUBIN,TOTAL 0.4 MG/DL (0.1-1.0); BLOOD UREA NITROGEN 19 MG/DL (7-18); CALCIUM 9.7 MG/DL (8.5-10.1); CHLORIDE 96 MMOL/L (99-107); GLUCOSE 92 MG/DL (70-104); LIPASE < 50 U/L (73-393); POTASSIUM 3.4 MMOL/L (3.5-5.1); SODIUM 135 MMOL/L (135-145); TOTAL CARBON DIOXIDE 28.4 MMOL/L (24-32); TOTAL PROTEIN 7.3 G/DL (6.4-8.2); eGFR > 90 ML/MIN
[2022-05-16 22:33] LABS: CLARITY,URINE CLOUDY (Clear); COLOR,URINE YELLOW (Yellow); GLUCOSE, URINE NEGATIVE (Neg); KETONES,URINE >=80 mg/dl (Neg); LEUKOCYTE ESTERASE ,URINE SMALL (Neg); NITRITES, URINE POSITIVE (Neg); OCCULT BLOOD,URINE TRACE-INTACT (Neg); PROTEIN,URINE NEGATIVE (Neg); UROBILINOGEN,URINE 0.2 E.U/dL (0.2-1.0)
[2022-05-16 22:34] LABS: UA COLLECTION TYPE CLN CATCH MIDSTREAM
[2022-05-16 22:36] LABS: URINE HCG NEGATIVE (NEG)
[2022-05-16 22:39] LABS: BACTERIA,URINE 4+ /HPF (Neg); SQUAMOUS EPITHELIAL CELL,UR MODERATE /LPF (FEW)
[2022-05-16 22:41] LABS: WBC CLUMPS,URINE FEW /HPF (NEGATIVE); WBC,URINE TNTC /HPF (0-4)
[2022-05-16] MEDS ORDERED: normal saline 1000ML IV soln IVB ONE (23:05)
[2022-05-16] MEDS ORDERED: CefTRIAXone/D5W-Rocephin 1gm 50 ML IV ONE (23:05)
[2022-05-17 00:02] VITALS: BP 126/61
[2022-05-17] MEDS ORDERED: acetaminophen 325mg tablet PO ONE (00:05)
--- NOTE | 2022-05-17 00:14 | NUR ---
WENT TO CT VIA W/C [employer]PLICATION [employer]EL[employer]
[2022-05-17] MEDS ORDERED: iohexol 300mg/ml 100ml inj. ONE (00:47)
[2022-05-17] MEDS ORDERED: baclofen 10mg tablet PO STA (01:08)
[2022-05-17] MEDS ORDERED: traMADol 50MG tablet PO ONE (01:10)
[2022-05-17] MEDS ORDERED: normal saline 1000ML IV soln IVB ONE (01:45)
[2022-05-17] MEDS ORDERED: LEVO750T68 PO (02:06)
== END 2022-05-17 02:55 | disposition home or self-care (01) ==
LOC: ER 16:06
DX: N39.0 Urinary tract infection, site not specified (principal); Z20.822 Contact with and (suspected) exposure to COVID-19; K21.9 Gastro-esophageal reflux disease without esophagitis; G89.29 Other chronic pain; Z90.49 Acquired absence of other specified parts of digestive tract; Z90.710 Acquired absence of both cervix and uterus; Z98.890 Other specified postprocedural states; Z87.891 Personal history of nicotine dependence; Z88.8 Allergy status to other drugs, medicaments and biological substances; Z79.899 Other long term (current) drug therapy
CPT/HCPCS: 36415; 71045; 74177; 80053; 81001; 81025; 83605; 83690; 84145; 85025; 87040; 87077; 87088; 87186; 87502; 87503; 87635; 96365; 96366; 99285; C9803; J0696; J3490; J7030; Q9967

== ENCOUNTER 2023-07-05 09:26 | Emergency (ER) | payer MEDICARE, MEDICAID ==
[~2023-07-05] VITALS: Ht 170.2 cm; Wt 45.5 kg
[~2023-07-05 09:26] MED LIST changes: -CLOT15CR73 TP; +MELO-100 PO; -ONDA4TAB12 PO; -PANT-47 PO
[2023-07-05 09:34] VITALS: TEMP 98.4
[2023-07-05 11:56] LABS: BASOPHILS # (AUTO) 0.1 X10'3 (0-0.2); BASOPHILS % (AUTO) 0.8 % (0-1); EOSINOPHILS # (AUTO) 0.1 X10'3 (0-0.9); EOSINOPHILS % (AUTO) 0.5 % (0-6); LYMPHOCYTES # (AUTO) 1.4 X10'3 (1.1-4.8); LYMPHOCYTES % (AUTO) 13.7 % (21-51); MEAN CORPUSCULAR HEMOGLOBIN 28.2 PG (27.0-31.0); MEAN CORPUSCULAR HGB CONC 32.2 g/dL (33.0-36.5); MEAN CORPUSCULAR VOLUME 87.5 FL (78-98); MEAN PLATELET VOLUME 7.6 FL (7.4-10.4); MONOCYTES # (AUTO) 0.7 X10'3 (0-0.9); MONOCYTES % (AUTO) 7.3 % (2-12); NEUTROPHILS # (AUTO) 7.9 X10'3 (1.8-7.7); NEUTROPHILS % (AUTO) 77.7 % (42-75); PLATELET COUNT 458 X10'3 (140-440); RED BLOOD COUNT 3.54 X10'6 (4.20-5.60); RED CELL DISTRIBUTION WIDTH 15.5 % (11.5-14.5); WHITE BLOOD COUNT 10.1 X10'3 (4.5-11.0)
[2023-07-05 12:05] LABS: INR 1.1 INR; PROTHROMBIN TIME 11.5 SECONDS (9.0-12.0)
[2023-07-05 12:08] LABS: ALANINE AMINOTRANSFERASE 17 U/L (12-78); ALBUMIN 2.5 G/DL (3.4-5.0); ALBUMIN/GLOBULIN RATIO 0.5 (1.1-1.5); ALKALINE PHOSPHATASE 68 IU/L (46-116); ANION GAP 8 (8-16); ASPARTATE AMINO TRANSFERASE 11 U/L (10-37); BILIRUBIN,TOTAL 0.3 MG/DL (0.1-1.0); BLOOD UREA NITROGEN 16 MG/DL (7-18); BUN/CREATININE RATIO 29.6 (10.0-20.0); CALCIUM 8.8 MG/DL (8.5-10.1); CHLORIDE 102 MMOL/L (99-107); CREATININE 0.54 MG/DL (0.40-0.90); GLUCOSE 130 MG/DL (70-104); POTASSIUM 3.8 MMOL/L (3.5-5.1); SODIUM 140 MMOL/L (135-145); TOTAL CARBON DIOXIDE 30.4 MMOL/L (24-32); TOTAL PROTEIN 7.5 G/DL (6.4-8.2); URIC ACID 2.7 MG/DL (2.5-6.2); eCRCL 80 ML/MIN; eGFR > 90 ML/MIN
[2023-07-05 12:22] VITALS: BP 105/61; PULSE 78; RESP 16; O2SAT 98
== END 2023-07-05 12:24 | disposition home or self-care (01) ==
LOC: ER 09:26
DX: S93.402A Sprain of unspecified ligament of left ankle, initial encounter (principal); R60.0 Localized edema; K21.9 Gastro-esophageal reflux disease without esophagitis; Z87.81 Personal history of (healed) traumatic fracture; Z86.2 Personal history of diseases of the blood and blood-forming organs and certain disorders involving the immune mechanism; G89.29 Other chronic pain; M54.9 Dorsalgia, unspecified; Z88.8 Allergy status to other drugs, medicaments and biological substances; Z88.6 Allergy status to analgesic agent; X58.XXXA Exposure to other specified factors, initial encounter; Y93.89 Activity, other specified; Y92.89 Other specified places as the place of occurrence of the external cause; Y99.8 Other external cause status
CPT/HCPCS: 36415; 73564; 73610; 80053; 84550; 85025; 85610; 93971; 99284

== ENCOUNTER 2023-08-08 13:31 | Outpatient (CLI) | payer MEDICARE, MEDICAID | END 2023-08-08 23:59 | disposition home or self-care (01) | LOC: 64 CT 13:31 | PROVIDERS: ATTEND Physician Assistant Surgical | DX: M25.462 Effusion, left knee (principal); M25.562 Pain in left knee; Z98.890 Other specified postprocedural states | CPT/HCPCS: 73700 ==

== ENCOUNTER 2024-03-24 06:55 | Day surgery (SDC) | payer MEDICARE, MEDICAID ==
[2024-03-19 16:11] LABS: BASOPHILS % (AUTO) 0.5 % (0-1); EOSINOPHILS % (AUTO) 0.5 % (0-6); LYMPHOCYTES # (AUTO) 1.7 X10'3 (1.1-4.8); MEAN CORPUSCULAR HEMOGLOBIN 27.2 PG (27.0-31.0); MEAN CORPUSCULAR HGB CONC 32.3 g/dL (33.0-36.5); MEAN CORPUSCULAR VOLUME 84.2 FL (78-98); MEAN PLATELET VOLUME 7.7 FL (7.4-10.4); MONOCYTES # (AUTO) 0.9 X10'3 (0-0.9); MONOCYTES % (AUTO) 10.9 % (2-12); NEUTROPHILS # (AUTO) 5.5 X10'3 (1.8-7.7); NEUTROPHILS % (AUTO) 67.1 % (42-75); PRE OP HEMATOCRIT 34.8 % (35.0-45.0); PRE OP HEMOGLOBIN 11.3 g/dL (12.0-16.0); PRE OP PLATELET COUNT 379 X10'3 (140-440); PRE OP WHITE BLOOD COUNT 8.1 10'3 (4.8-10.8); RED BLOOD COUNT 4.14 X10'6 (4.20-5.60); RED CELL DISTRIBUTION WIDTH 13.6 % (11.5-14.5)
[2024-03-19 16:17] LABS: ALBUMIN 2.9 G/DL (3.4-5.0); ALBUMIN/GLOBULIN RATIO 0.6 (1.1-1.5); ALKALINE PHOSPHATASE 83 IU/L (46-116); BLOOD UREA NITROGEN 17 MG/DL (7-18); BUN/CREATININE RATIO 29.8 (10.0-20.0); CHLORIDE 102 MMOL/L (99-107); CREATININE 0.57 MG/DL (0.40-0.90); PRE OP ALT 6 U/L (30-65); PRE OP ANION GAP 2 (8-16); PRE OP AST 6 U/L (10-37); PRE OP BILIRUB, TOTAL 0.2 MG/DL (0.0-1.0); PRE OP GLUCOSE 111 MG/DL (70-104); PRE OP POTASSIUM 4.2 MMOL/L (3.4-5.1); PRE OP SODIUM 137 MMOL/L (135-145); TOTAL CARBON DIOXIDE 33.2 MMOL/L (24-32); TOTAL PROTEIN 7.8 G/DL (6.4-8.2); eGFR > 90 ML/MIN
[~2024-03-24] VITALS: Ht 170.2 cm; Wt 47.6 kg
[2024-03-24] MEDS: ceFAZolin 2gm in dextrose, iso 50 ML IV ONE (05:30)
[~2024-03-24 06:55] MED LIST changes: +BACL20TA11 PO; -CALC0.2511 PO; -MELO-100 PO
[2024-03-24] MEDS ORDERED: fentaNYL/PF 50MCG/1 ML 2ML syringe IV PRN ×2 (07:45)
[2024-03-24] MEDS ORDERED: ondansetron/PF 4mg/2ml inj IV PRN (07:45)
[2024-03-24] MEDS ORDERED: morphine 4 MG/ML inj SYRINge IV PRN (07:45)
[2024-03-24] MEDS ORDERED: ringers solution, lacted 1,000 ML IV SCH (07:45)
[2024-03-24] MEDS ORDERED: morphine 2 MG/ML inj. syringe IV PRN (07:45)
[2024-03-24] MEDS ORDERED: labetalol 20mg/4ml (5mg/ml) syringe IV PRN (07:45)
[2024-03-24] MEDS ORDERED: traMADol 50MG tablet PO ONE (07:58)
[2024-03-24] MEDS: famotidine 20mg tablet PO ONE (08:01)
[2024-03-24] MEDS: ringers solution, lacted 1,000 ML IV SCH (08:01)
[2024-03-24] MEDS ORDERED: BUPIVAcaine/PF 2.5mg/ml (0.25%) 10ml vial ONE (09:28)
[2024-03-24] MEDS: traMADol 50MG tablet PO ONE (09:38)
[2024-03-24] MEDS: baclofen 10mg tablet PO PRN (09:39)
[2024-03-24 11:32] VITALS: BP 116/84; PULSE 102; RESP 16; TEMP 97.5; O2SAT 100
[2024-03-24 11:37] VITALS: RESP 16; O2SAT 100
== END 2024-03-24 10:15 | disposition home or self-care (01) ==
LOC: PAS 06:55
PROVIDERS: ATTEND Orthopaedic Surgery Hand Surgery
DX: T84.7XXA Infection and inflammatory reaction due to other internal orthopedic prosthetic devices, implants and grafts, initial encounter (principal); M25.562 Pain in left knee; Z53.8 Procedure and treatment not carried out for other reasons; I51.7 Cardiomegaly; Y83.8 Other surgical procedures as the cause of abnormal reaction of the patient, or of later complication, without mention of misadventure at the time of the procedure; Y92.89 Other specified places as the place of occurrence of the external cause
CPT/HCPCS: 36415; 80053; 82948; 85025; 93005; J7120; Z7610; J0690; J3490

== ENCOUNTER 2024-03-26 22:08 | Inpatient (IN) | payer MEDICARE, MEDICAID ==
[~2024-03-26] VITALS: Ht 160 cm; Wt 40.9 kg
[2024-03-27 01:10] LABS: BASOPHILS # (AUTO) 0.1 X10'3 (0-0.2); BASOPHILS % (AUTO) 0.6 % (0-1); EOSINOPHILS # (AUTO) 0.1 X10'3 (0-0.9); EOSINOPHILS % (AUTO) 0.7 % (0-6); HEMATOCRIT 32.5 % (35.0-45.0); HEMOGLOBIN 10.8 g/dl (12.0-16.0); LYMPHOCYTES # (AUTO) 1.6 X10'3 (1.1-4.8); LYMPHOCYTES % (AUTO) 16.1 % (21-51); MEAN CORPUSCULAR HEMOGLOBIN 27.5 PG (27.0-31.0); MEAN CORPUSCULAR HGB CONC 33.3 g/dL (33.0-36.5); MEAN CORPUSCULAR VOLUME 82.5 FL (78-98); MEAN PLATELET VOLUME 7.3 FL (7.4-10.4); MONOCYTES # (AUTO) 0.6 X10'3 (0-0.9); NEUTROPHILS # (AUTO) 7.6 X10'3 (1.8-7.7); NEUTROPHILS % (AUTO) 76.6 % (42-75); PLATELET COUNT 414 X10'3 (140-440); RED BLOOD COUNT 3.93 X10'6 (4.20-5.60); WHITE BLOOD COUNT 9.9 X10'3 (4.5-11.0)
[2024-03-27 01:24] LABS: ALANINE AMINOTRANSFERASE 15 U/L (12-78); ALBUMIN 2.9 G/DL (3.4-5.0); ALBUMIN/GLOBULIN RATIO 0.5 (1.1-1.5); ALKALINE PHOSPHATASE 86 IU/L (46-116); ANION GAP 9 (8-16); ASPARTATE AMINO TRANSFERASE 11 U/L (10-37); BILIRUBIN,TOTAL 0.3 MG/DL (0.1-1.0); BLOOD UREA NITROGEN 13 MG/DL (7-18); C-REACTIVE PROTEIN 15.93 MG/DL (0.0-0.5); CALCIUM 9.4 MG/DL (8.5-10.1); CHLORIDE 100 MMOL/L (99-107); CREATININE 0.42 MG/DL (0.40-0.90); GLUCOSE 88 MG/DL (70-104); POTASSIUM 3.8 MMOL/L (3.5-5.1); SODIUM 138 MMOL/L (135-145); TOTAL CARBON DIOXIDE 28.7 MMOL/L (24-32); TOTAL PROTEIN 8.2 G/DL (6.4-8.2); eCRCL 92 ML/MIN; eGFR > 90 ML/MIN
[2024-03-27] MEDS: LIDOcaine 1% W/epiNEPHrine 1:100,000 20ml vial SQ ONE (01:37)
[2024-03-27] MEDS: VANCOMYCIN 1GM 200ML H20 (PEG) 200 ML IV ONE (01:37)
[2024-03-27] MEDS: CefTRIAXone 2gm/D5W 50ml BAG 50 ML IV ONE (01:49)
[2024-03-27 03:48] LABS: BFAPPEAR BLOODY; BFSOURCE OTHER
[2024-03-27 03:51] LABS: BFCOLOR RED; BFVOLUME 1 ML
[2024-03-27 03:53] LABS: LYMPHOCYTES,BODY FLUID 1 %; MONOCYTES,BODY FLUID 2 %; NEUTROPHILS,BODY FLUID 97 %
[2024-03-27] MEDS: LidoCAINE 2% Topical Jelly 11mL syringe (UROJET) TOP ONE (05:55)
[2024-03-27] MEDS ORDERED: HYDROcodone/acetaminophen 5mg/325mg tablet PO PRN (05:55)
[2024-03-27] MEDS ORDERED: magnesium sulf-water 2g/50mL 50 ML IV PRN (05:55)
[2024-03-27] MEDS ORDERED: potassium Cl 40MEQ/1/2NS 520ml 520 ML IV PRN (05:55)
[2024-03-27] MEDS ORDERED: HYDROcodone/acetaminophen 10/325mg tab PO PRN (05:55)
[2024-03-27] MEDS ORDERED: potassium Cl 20 mEq SR tablet PO PRN ×2 (05:55)
[2024-03-27] MEDS ORDERED: magnesium sulf-water 4G/100mL 100 ML IV PRN (05:55)
[2024-03-27] MEDS ORDERED: magnesium Cl slow-release 64mg tablet PO PRN (05:55)
[2024-03-27 06:13] LABS: BF WBC COUNT 133000 /CU MM (0-1000)
[2024-03-27 06:14] LABS: BF RBC COUNT 12400 /CU MM
[2024-03-27] MEDS ORDERED: ondansetron/PF 4mg/2ml inj IV PRN (06:30)
[2024-03-27] MEDS: K and/or MAG REPLACEMENT MC SCH (08:00)
[2024-03-27 09:08] LABS: APTT 31 SECONDS (22-32); INR 1.1 INR; PROTHROMBIN TIME 11.4 SECONDS (9.0-12.0)
[2024-03-27 10:54] LABS: BILIRUBIN,URINE NEGATIVE (Neg); CLARITY,URINE CLOUDY (Clear); COLOR,URINE YELLOW (Yellow); GLUCOSE, URINE NEGATIVE (Neg); KETONES,URINE 15 mg/dl (Neg); LEUKOCYTE ESTERASE ,URINE NEGATIVE (Neg); NITRITES, URINE POSITIVE (Neg); OCCULT BLOOD,URINE NEGATIVE (Neg); PROTEIN,URINE NEGATIVE (Neg); UROBILINOGEN,URINE 0.2 E.U/dL (0.2-1.0)
[2024-03-27 11:01] LABS: URINE AMPHETAMINE SCREEN NEGATIVE (Neg); URINE BARBITUATE SCREEN NEGATIVE (Neg); URINE BENZODIAZEPINES SCREEN NEGATIVE (Neg); URINE CANNABINOID SCREEN NEGATIVE (Neg); URINE COCAINE SCREEN NEGATIVE (Neg); URINE METHADONE SCREEN NEGATIVE (Neg); URINE OPIATE SCREEN NEGATIVE (Neg); URINE PHENCYCLIDINE SCREEN NEGATIVE (Neg)
[2024-03-27 11:04] LABS: UA COLLECTION TYPE FOLEY CATH
[2024-03-27 11:05] LABS: BACTERIA,URINE 4+ /HPF (Neg); SQUAMOUS EPITHELIAL CELL,UR MANY /LPF (FEW); WBC,URINE TNTC /HPF (0-4)
[2024-03-27 11:07] LABS: TRANSITIONAL EPI CELLS,URINE FEW /HPF; WBC CLUMPS,URINE FEW /HPF (NEGATIVE)
[2024-03-27 11:08] LABS: AMORPHOUS URATES 2+; MUCUS STRANDS FEW /LPF (Neg)
[2024-03-27 11:09] LABS: CAL OXALATE CRYSTALS 1+ /HPF (NEGATIVE); RBC,URINE 0-2 /HPF (0-2)
[2024-03-27] MEDS: normal saline 1000ml 1,000 ML IV SCH (12:15)
[2024-03-27] MEDS: pantoprazole 40mg Tablet.DR PO SCH (12:15)
[2024-03-27] MEDS: VANCOMYCIN 1GM 200ML H20 (PEG) 200 ML IV SCH (14:00)
[2024-03-27 14:30] VITALS: BP 106/68; PULSE 100; RESP 18; TEMP 98.3; O2SAT 100
[2024-03-27] MEDS: baclofen 10mg tablet PO PRN (15:43)
[2024-03-27] MEDS: traMADol 50MG tablet PO PRN (15:45)
[2024-03-27 15:48] VITALS: RESP 16
[2024-03-27] MEDS ORDERED: TRAM50TA2 PO (16:03)
[2024-03-27] MEDS ORDERED: BACL20TA4 PO (16:03)
[2024-03-27 18:00] VITALS: BP 140/56; PULSE 104; RESP 18; TEMP 97.6; O2SAT 96
[2024-03-27 20:00] VITALS: RESP 18; O2SAT 96
[2024-03-27] MEDS: linezolid 600mg tablet PO SCH (20:05)
[2024-03-27] MEDS: baclofen 10mg tablet PO SCH (20:06)
[2024-03-27 22:00] VITALS: BP 127/64; PULSE 125; RESP 16; TEMP 99.7; O2SAT 98
[2024-03-28] VITALS (18 sets, daily range): BP systolic 15–159; BP diastolic 51–82; PULSE 64–95; RESP 14–18; TEMP 97.4–98.6; O2SAT 94–100
[2024-03-28] MEDS: CefTRIAXone 2gm/D5W 50ml BAG 50 ML IV SCH (01:30)
[2024-03-28] MEDS: baclofen 10mg tablet PO SCH (08:03)
[2024-03-28 08:19] LABS: BASOPHILS % (AUTO) 0.6 % (0-1); EOSINOPHILS # (AUTO) 0.1 X10'3 (0-0.9); HEMOGLOBIN 10.1 g/dl (12.0-16.0); LYMPHOCYTES # (AUTO) 1.7 X10'3 (1.1-4.8); LYMPHOCYTES % (AUTO) 24.6 % (21-51); MEAN CORPUSCULAR HEMOGLOBIN 27.2 PG (27.0-31.0); MEAN CORPUSCULAR HGB CONC 32.7 g/dL (33.0-36.5); MEAN CORPUSCULAR VOLUME 83.1 FL (78-98); MEAN PLATELET VOLUME 7.5 FL (7.4-10.4); MONOCYTES # (AUTO) 0.7 X10'3 (0-0.9); MONOCYTES % (AUTO) 9.7 % (2-12); NEUTROPHILS # (AUTO) 4.4 X10'3 (1.8-7.7); NEUTROPHILS % (AUTO) 64.1 % (42-75); PLATELET COUNT 399 X10'3 (140-440); RED BLOOD COUNT 3.73 X10'6 (4.20-5.60); WHITE BLOOD COUNT 6.9 X10'3 (4.5-11.0)
[2024-03-28 08:38] LABS: APTT 31 SECONDS (22-32); INR 1.1 INR; PROTHROMBIN TIME 11.5 SECONDS (9.0-12.0)
[2024-03-28 08:42] LABS: ALANINE AMINOTRANSFERASE 8 U/L (12-78); ALBUMIN 2.3 G/DL (3.4-5.0); ALBUMIN/GLOBULIN RATIO 0.5 (1.1-1.5); ALKALINE PHOSPHATASE 71 IU/L (46-116); ANION GAP 5 (8-16); ASPARTATE AMINO TRANSFERASE 9 U/L (10-37); BILIRUBIN,TOTAL 0.3 MG/DL (0.1-1.0); BLOOD UREA NITROGEN 16 MG/DL (7-18); BUN/CREATININE RATIO 38.1 (10.0-20.0); CALCIUM 8.5 MG/DL (8.5-10.1); CHLORIDE 106 MMOL/L (99-107); CREATININE 0.42 MG/DL (0.40-0.90); GLUCOSE 88 MG/DL (70-104); POTASSIUM 3.7 MMOL/L (3.5-5.1); SODIUM 141 MMOL/L (135-145); TOTAL CARBON DIOXIDE 29.6 MMOL/L (24-32); TOTAL PROTEIN 6.8 G/DL (6.4-8.2); eCRCL 92 ML/MIN; eGFR > 90 ML/MIN
[2024-03-28] MEDS ORDERED: proCHLORperazine 10 MG/2 ml inj IV PRN (10:15)
[2024-03-28] MEDS: ringers solution, lacted 1,000 ML IV SCH (10:15)
[2024-03-28] MEDS ORDERED: morphine 4 MG/ML inj SYRINge IV PRN (10:15)
[2024-03-28] MEDS ORDERED: morphine 2 MG/ML inj. syringe IV PRN (10:15)
[2024-03-28] MEDS ORDERED: ondansetron/PF 4mg/2ml inj IV PRN (10:15)
[2024-03-28] MEDS ORDERED: meperidine/PF 25mg/ml syringe IV PRN ×3 (10:15)
[2024-03-28] MEDS ORDERED: vancomycin 1,000mg inj ONE (11:23)
[2024-03-28] MEDS ORDERED: lactose-reduced food (Ensure Enlive) - 237ml bottle PO SCH (13:00)
[2024-03-28] MEDS: lactose-reduced food (Ensure Enlive) - 237ml bottle PO SCH (18:17)
[2024-03-29] MEDS: heparin, porcine 5000 units/ml vial SQ SCH (01:15)
[2024-03-29 06:00] VITALS: BP 131/56; PULSE 83; RESP 16; TEMP 98.4; O2SAT 94
[2024-03-29] MEDS: lactobacillus rhamnosus 10,000 MMU CELLS/CAPSULE PO SCH (08:47)
[2024-03-29] MEDS: pantoprazole 40mg Tablet.DR PO SCH (08:48)
[2024-03-29 09:01] VITALS: RESP 18; O2SAT 94
[2024-03-29 09:05] LABS: BASOPHILS # (AUTO) 0.1 X10'3 (0-0.2); BASOPHILS % (AUTO) 0.6 % (0-1); EOSINOPHILS % (AUTO) 0.3 % (0-6); HEMATOCRIT 29.8 % (35.0-45.0); HEMOGLOBIN 9.6 g/dl (12.0-16.0); LYMPHOCYTES # (AUTO) 1.6 X10'3 (1.1-4.8); LYMPHOCYTES % (AUTO) 16.3 % (21-51); MEAN CORPUSCULAR HGB CONC 32.3 g/dL (33.0-36.5); MEAN CORPUSCULAR VOLUME 83.4 FL (78-98); MEAN PLATELET VOLUME 7.5 FL (7.4-10.4); MONOCYTES # (AUTO) 0.8 X10'3 (0-0.9); MONOCYTES % (AUTO) 8.1 % (2-12); NEUTROPHILS # (AUTO) 7.5 X10'3 (1.8-7.7); NEUTROPHILS % (AUTO) 74.7 % (42-75); PLATELET COUNT 455 X10'3 (140-440); RED BLOOD COUNT 3.57 X10'6 (4.20-5.60); RED CELL DISTRIBUTION WIDTH 13.8 % (11.5-14.5)
[2024-03-29 09:20] LABS: APTT 29 SECONDS (22-32); INR 1.1 INR; PROTHROMBIN TIME 11.8 SECONDS (9.0-12.0)
[2024-03-29 09:24] LABS: ALANINE AMINOTRANSFERASE 10 U/L (12-78); ALBUMIN 2.3 G/DL (3.4-5.0); ALBUMIN/GLOBULIN RATIO 0.5 (1.1-1.5); ALKALINE PHOSPHATASE 68 IU/L (46-116); ANION GAP 7 (8-16); ASPARTATE AMINO TRANSFERASE 11 U/L (10-37); BILIRUBIN,TOTAL 0.3 MG/DL (0.1-1.0); BLOOD UREA NITROGEN 8 MG/DL (7-18); BUN/CREATININE RATIO 14.8 (10.0-20.0); CALCIUM 8.1 MG/DL (8.5-10.1); CHLORIDE 105 MMOL/L (99-107); CREATININE 0.54 MG/DL (0.40-0.90); GLUCOSE 141 MG/DL (70-104); MAGNESIUM 1.7 MG/DL (1.5-2.4); PHOSPHORUS 2.1 MG/DL (2.3-4.5); POTASSIUM 3.7 MMOL/L (3.5-5.1); SODIUM 140 MMOL/L (135-145); TOTAL CARBON DIOXIDE 28.5 MMOL/L (24-32); TOTAL PROTEIN 6.8 G/DL (6.4-8.2); eCRCL 72 ML/MIN; eGFR > 90 ML/MIN
[2024-03-29 10:00] VITALS: BP 115/33; PULSE 83; RESP 18; TEMP 99; O2SAT 98
[2024-03-29] MEDS ORDERED: oxyCODONE IR 5mg (immed. release) tablet PO PRN (11:10)
[2024-03-29 18:30] VITALS: BP 135/69; PULSE 113; RESP 20; TEMP 98.5; O2SAT 94
[2024-03-29 22:00] VITALS: BP 102/68; PULSE 74; RESP 16; TEMP 98.3; O2SAT 99
[2024-03-29] MEDS: cefazolin 2gm/D5W 100mL 100 ML IV SCH (23:54)
[2024-03-30 07:00] VITALS: BP 96/46; PULSE 86; RESP 16; TEMP 97.4; O2SAT 97
[2024-03-30 07:42] VITALS: RESP 14; O2SAT 100
[2024-03-30 07:59] LABS: BASOPHILS % (AUTO) 0.5 % (0-1); EOSINOPHILS # (AUTO) 0.1 X10'3 (0-0.9); EOSINOPHILS % (AUTO) 1.5 % (0-6); HEMATOCRIT 26.2 % (35.0-45.0); HEMOGLOBIN 8.4 g/dl (12.0-16.0); LYMPHOCYTES # (AUTO) 1.6 X10'3 (1.1-4.8); LYMPHOCYTES % (AUTO) 21.3 % (21-51); MEAN CORPUSCULAR HEMOGLOBIN 26.7 PG (27.0-31.0); MEAN CORPUSCULAR VOLUME 83.5 FL (78-98); MEAN PLATELET VOLUME 7.3 FL (7.4-10.4); MONOCYTES # (AUTO) 0.7 X10'3 (0-0.9); MONOCYTES % (AUTO) 9.6 % (2-12); NEUTROPHILS % (AUTO) 67.1 % (42-75); PLATELET COUNT 348 X10'3 (140-440); RED BLOOD COUNT 3.14 X10'6 (4.20-5.60); RED CELL DISTRIBUTION WIDTH 14.3 % (11.5-14.5); WHITE BLOOD COUNT 7.5 X10'3 (4.5-11.0)
[2024-03-30 08:05] LABS: APTT 31 SECONDS (22-32); INR 1.1 INR; PROTHROMBIN TIME 11.6 SECONDS (9.0-12.0)
[2024-03-30] MEDS ORDERED: rifampin inj. 600 MG in normal saline 100ml IV soln 100 ML IV SCH (08:05)
[2024-03-30 08:44] LABS: ALANINE AMINOTRANSFERASE 11 U/L (12-78); ALBUMIN/GLOBULIN RATIO 0.5 (1.1-1.5); ALKALINE PHOSPHATASE 59 IU/L (46-116); ANION GAP 7 (8-16); ASPARTATE AMINO TRANSFERASE 10 U/L (10-37); BILIRUBIN,TOTAL 0.2 MG/DL (0.1-1.0); BLOOD UREA NITROGEN 11 MG/DL (7-18); BUN/CREATININE RATIO 21.2 (10.0-20.0); CHLORIDE 106 MMOL/L (99-107); CREATININE 0.52 MG/DL (0.40-0.90); GLUCOSE 93 MG/DL (70-104); MAGNESIUM 1.8 MG/DL (1.5-2.4); PHOSPHORUS 2.8 MG/DL (2.3-4.5); POTASSIUM 3.8 MMOL/L (3.5-5.1); SODIUM 141 MMOL/L (135-145); TOTAL CARBON DIOXIDE 28.5 MMOL/L (24-32); TOTAL PROTEIN 6.1 G/DL (6.4-8.2); eCRCL 74 ML/MIN; eGFR > 90 ML/MIN
[2024-03-30] MEDS: ceFAZolin 2gm in dextrose, iso 50 ML IV SCH (08:49)
[2024-03-30 11:00] VITALS: BP 122/62; PULSE 75; RESP 16; TEMP 97.9; O2SAT 99
[2024-03-30] MEDS: RIFAMPIN IV SCH (11:55)
[2024-03-30] MEDS: NORMAL SALINE IV SCH (11:55)
[2024-03-30] MEDS: diphenhydrAMINE 25mg capsule PO ONE (17:43)
[2024-03-30 18:30] VITALS: BP 117/35; PULSE 97; RESP 18; TEMP 97.9; O2SAT 96
[2024-03-30 22:00] VITALS: BP 108/72; PULSE 102; RESP 13; TEMP 97.5; O2SAT 93
[2024-03-31 06:00] VITALS: BP 107/55; PULSE 88; RESP 13; TEMP 97.1; O2SAT 100
[2024-03-31 06:06] LABS: BASOPHILS # (AUTO) 0.1 X10'3 (0-0.2); BASOPHILS % (AUTO) 1.1 % (0-1); EOSINOPHILS # (AUTO) 0.2 X10'3 (0-0.9); HEMATOCRIT 25.7 % (35.0-45.0); HEMOGLOBIN 8.4 g/dl (12.0-16.0); LYMPHOCYTES % (AUTO) 28.9 % (21-51); MEAN CORPUSCULAR HEMOGLOBIN 27.2 PG (27.0-31.0); MEAN CORPUSCULAR HGB CONC 32.5 g/dL (33.0-36.5); MEAN CORPUSCULAR VOLUME 83.7 FL (78-98); MEAN PLATELET VOLUME 7.7 FL (7.4-10.4); MONOCYTES # (AUTO) 0.5 X10'3 (0-0.9); MONOCYTES % (AUTO) 7.4 % (2-12); NEUTROPHILS # (AUTO) 4.1 X10'3 (1.8-7.7); NEUTROPHILS % (AUTO) 59.6 % (42-75); PLATELET COUNT 384 X10'3 (140-440); RED BLOOD COUNT 3.07 X10'6 (4.20-5.60); RED CELL DISTRIBUTION WIDTH 14.3 % (11.5-14.5); WHITE BLOOD COUNT 6.8 X10'3 (4.5-11.0)
[2024-03-31 06:16] LABS: INR 1.1 INR; PROTHROMBIN TIME 11.1 SECONDS (9.0-12.0)
[2024-03-31 06:37] LABS: ALANINE AMINOTRANSFERASE 7 U/L (12-78); ALBUMIN 2.2 G/DL (3.4-5.0); ALBUMIN/GLOBULIN RATIO 0.5 (1.1-1.5); ALKALINE PHOSPHATASE 65 IU/L (46-116); ANION GAP 8 (8-16); ASPARTATE AMINO TRANSFERASE 10 U/L (10-37); BILIRUBIN,TOTAL 0.2 MG/DL (0.1-1.0); BLOOD UREA NITROGEN 14 MG/DL (7-18); BUN/CREATININE RATIO 36.8 (10.0-20.0); CALCIUM 8.6 MG/DL (8.5-10.1); CHLORIDE 103 MMOL/L (99-107); CREATININE 0.38 MG/DL (0.40-0.90); GLUCOSE 89 MG/DL (70-104); PHOSPHORUS 3.3 MG/DL (2.3-4.5); SODIUM 138 MMOL/L (135-145); TOTAL CARBON DIOXIDE 26.9 MMOL/L (24-32); TOTAL PROTEIN 6.6 G/DL (6.4-8.2); eCRCL 102 ML/MIN; eGFR > 90 ML/MIN
[2024-03-31 09:00] VITALS: RESP 18; O2SAT 96
[2024-03-31 10:00] VITALS: BP 132/78; PULSE 78; RESP 18; TEMP 97.9; O2SAT 98
[2024-03-31] MEDS: docusate sod 100mg capsule PO ONE (13:09)
[2024-03-31 18:00] VITALS: BP 111/62; PULSE 94; RESP 18; TEMP 98.3; O2SAT 100
[2024-03-31 20:00] VITALS: RESP 18; O2SAT 100
[2024-03-31] MEDS: VANCOMYCIN 1GM 200ML H20 (PEG) 200 ML IV SCH (21:40)
[2024-03-31 22:00] VITALS: BP 161/67; PULSE 79; RESP 18; TEMP 98.1; O2SAT 96
[2024-04-01] VITALS (7 sets, daily range): BP systolic 114–139; BP diastolic 41–70; PULSE 81–108; RESP 13–21; TEMP 98.9–99.9; O2SAT 98–100
[2024-04-01 04:12] LABS: BASOPHILS # (AUTO) 0.1 X10'3 (0-0.2); BASOPHILS % (AUTO) 1.4 % (0-1); EOSINOPHILS # (AUTO) 0.1 X10'3 (0-0.9); EOSINOPHILS % (AUTO) 1.6 % (0-6); HEMOGLOBIN 8.1 g/dl (12.0-16.0); MEAN CORPUSCULAR HEMOGLOBIN 26.7 PG (27.0-31.0); MEAN CORPUSCULAR HGB CONC 32.3 g/dL (33.0-36.5); MEAN CORPUSCULAR VOLUME 82.7 FL (78-98); MEAN PLATELET VOLUME 7.7 FL (7.4-10.4); MONOCYTES # (AUTO) 0.7 X10'3 (0-0.9); MONOCYTES % (AUTO) 8.6 % (2-12); NEUTROPHILS # (AUTO) 5.3 X10'3 (1.8-7.7); NEUTROPHILS % (AUTO) 64.4 % (42-75); PLATELET COUNT 415 X10'3 (140-440); RED BLOOD COUNT 3.02 X10'6 (4.20-5.60); RED CELL DISTRIBUTION WIDTH 14.3 % (11.5-14.5); WHITE BLOOD COUNT 8.3 X10'3 (4.5-11.0)
[2024-04-01 04:23] LABS: INR 1.1 INR; PROTHROMBIN TIME 11.3 SECONDS (9.0-12.0)
[2024-04-01 04:29] LABS: ALANINE AMINOTRANSFERASE 7 U/L (12-78); ALBUMIN 2.2 G/DL (3.4-5.0); ALBUMIN/GLOBULIN RATIO 0.5 (1.1-1.5); ALKALINE PHOSPHATASE 65 IU/L (46-116); ANION GAP 4 (8-16); ASPARTATE AMINO TRANSFERASE 12 U/L (10-37); BILIRUBIN,TOTAL 0.2 MG/DL (0.1-1.0); BLOOD UREA NITROGEN 14 MG/DL (7-18); BUN/CREATININE RATIO 25.9 (10.0-20.0); CALCIUM 8.3 MG/DL (8.5-10.1); CHLORIDE 104 MMOL/L (99-107); CREATININE 0.54 MG/DL (0.40-0.90); GLUCOSE 97 MG/DL (70-104); MAGNESIUM 1.7 MG/DL (1.5-2.4); PHOSPHORUS 3.6 MG/DL (2.3-4.5); POTASSIUM 4.2 MMOL/L (3.5-5.1); SODIUM 137 MMOL/L (135-145); TOTAL CARBON DIOXIDE 29.2 MMOL/L (24-32); TOTAL PROTEIN 6.3 G/DL (6.4-8.2); eCRCL 72 ML/MIN; eGFR > 90 ML/MIN
[2024-04-01] MEDS: rifampin 300mg capsule PO SCH (08:18)
[2024-04-02 06:00] VITALS: BP 131/61; PULSE 91; RESP 18; TEMP 97.9; O2SAT 97
[2024-04-02] MEDS: normal saline 1000ml 1,000 ML IV SCH (07:12)
[2024-04-02] MEDS: VANCOMYCIN LEVEL IV ONE (07:49)
[2024-04-02 08:00] VITALS: RESP 18; O2SAT 97
[2024-04-02 10:00] VITALS: BP 102/48; PULSE 88; RESP 16; TEMP 97.7; O2SAT 100
[2024-04-02 13:38] LABS: BASOPHILS # (AUTO) 0.1 X10'3 (0-0.2); BASOPHILS % (AUTO) 0.4 % (0-1); EOSINOPHILS # (AUTO) 0.1 X10'3 (0-0.9); EOSINOPHILS % (AUTO) 0.8 % (0-6); HEMATOCRIT 26.8 % (35.0-45.0); HEMOGLOBIN 8.6 g/dl (12.0-16.0); LYMPHOCYTES # (AUTO) 1.3 X10'3 (1.1-4.8); LYMPHOCYTES % (AUTO) 8.1 % (21-51); MEAN CORPUSCULAR HEMOGLOBIN 26.6 PG (27.0-31.0); MEAN CORPUSCULAR VOLUME 83.1 FL (78-98); MEAN PLATELET VOLUME 7.3 FL (7.4-10.4); MONOCYTES # (AUTO) 0.8 X10'3 (0-0.9); MONOCYTES % (AUTO) 5.1 % (2-12); NEUTROPHILS # (AUTO) 13.4 X10'3 (1.8-7.7); NEUTROPHILS % (AUTO) 85.6 % (42-75); PLATELET COUNT 457 X10'3 (140-440); RED BLOOD COUNT 3.23 X10'6 (4.20-5.60); RED CELL DISTRIBUTION WIDTH 14.4 % (11.5-14.5); WHITE BLOOD COUNT 15.7 X10'3 (4.5-11.0)
[2024-04-02 13:54] LABS: ALANINE AMINOTRANSFERASE 9 U/L (12-78); ALBUMIN 2.3 G/DL (3.4-5.0); ALBUMIN/GLOBULIN RATIO 0.5 (1.1-1.5); ALKALINE PHOSPHATASE 72 IU/L (46-116); ANION GAP 5 (8-16); ASPARTATE AMINO TRANSFERASE 12 U/L (10-37); BILIRUBIN,TOTAL 0.6 MG/DL (0.1-1.0); BLOOD UREA NITROGEN 17 MG/DL (7-18); BUN/CREATININE RATIO 39.5 (10.0-20.0); CALCIUM 8.7 MG/DL (8.5-10.1); CHLORIDE 105 MMOL/L (99-107); CREATININE 0.43 MG/DL (0.40-0.90); GLUCOSE 118 MG/DL (70-104); POTASSIUM 3.2 MMOL/L (3.5-5.1); SODIUM 141 MMOL/L (135-145); TOTAL CARBON DIOXIDE 31.4 MMOL/L (24-32); TOTAL PROTEIN 6.8 G/DL (6.4-8.2); eCRCL 90 ML/MIN; eGFR > 90 ML/MIN
[2024-04-02] MEDS ORDERED: potassium Cl 40MEQ/1/2NS 520ml 520 ML IV PRN (14:20)
[2024-04-02] MEDS ORDERED: magnesium sulf-water 4G/100mL 100 ML IV PRN (14:20)
[2024-04-02] MEDS ORDERED: potassium Cl 20 mEq SR tablet PO PRN ×2 (14:20)
[2024-04-02] MEDS ORDERED: magnesium sulf-water 2g/50mL 50 ML IV PRN (14:20)
[2024-04-02] MEDS ORDERED: magnesium Cl slow-release 64mg tablet PO PRN (14:20)
[2024-04-02 15:40] VITALS: RESP 18
[2024-04-02] MEDS ORDERED: VANC750F IV (16:06)
[2024-04-02] MEDS ORDERED: PANT40TA54 PO (16:06)
[2024-04-02] MEDS ORDERED: LACT1CAP26 PO (16:06)
== END 2024-04-02 16:45 | disposition home health service (06) | DRG 481 ==
LOC: ER 22:09 → ED HOLD 03-27 04:11 → SUR 3N 03-27 11:57
PROVIDERS: ADMIT Internal Medicine Critical Care Medicine; ATTEND Family Medicine
PROC: 0S9D3ZZ Drainage of Left Knee Joint, Percutaneous Approach (ICD-10-PCS; 2024-03-27)
PROC: 0QS904Z Reposition Left Femoral Shaft with Internal Fixation Device, Open Approach (ICD-10-PCS; 2024-03-28)
PROC: 0QP704Z Removal of Internal Fixation Device from Left Upper Femur, Open Approach (ICD-10-PCS; principal; 2024-03-28 10:21)
PROC: 02HV33Z Insertion of Infusion Device into Superior Vena Cava, Percutaneous Approach (ICD-10-PCS; 2024-03-31)
PROC: B548ZZA Ultrasonography of Superior Vena Cava, Guidance (ICD-10-PCS; 2024-03-31)
DX: T84.621A Infection and inflammatory reaction due to internal fixation device of left femur, initial encounter (principal); E44.0 Moderate protein-calorie malnutrition; G82.20 Paraplegia, unspecified; K59.2 Neurogenic bowel, not elsewhere classified; Z68.1 Body mass index [BMI] 19.9 or less, adult; N31.9 Neuromuscular dysfunction of bladder, unspecified; X58.XXXA Exposure to other specified factors, initial encounter; M13.862 Other specified arthritis, left knee; Y83.1 Surgical operation with implant of artificial internal device as the cause of abnormal reaction of the patient, or of later complication, without mention of misadventure at the time of the procedure; B95.61 Methicillin susceptible Staphylococcus aureus infection as the cause of diseases classified elsewhere; G89.29 Other chronic pain; K21.9 Gastro-esophageal reflux disease without esophagitis; G47.00 Insomnia, unspecified; M54.9 Dorsalgia, unspecified; Z90.710 Acquired absence of both cervix and uterus; Z90.49 Acquired absence of other specified parts of digestive tract; Z85.3 Personal history of malignant neoplasm of breast; Y92.89 Other specified places as the place of occurrence of the external cause
CPT/HCPCS: 36415; 36569; 71045; 73552; 74018; 76000; 76942; 80053; 80305; 81001; 82948; 83605; 83735; 84100; 84145; 85025; 85610; 85730; 86140; 87015; 87040; 87070; 87075; 87077; 87186; 89051; 93005; 96365; 96367; 97161; 97530; 99285; A4314; A4340; A4618; A5200; A6212; A6213; A6222; A6223; A6253; A6258; A6446; A6449; A7000; C1713; C1751; C1758; G0378; J0690; J0696; J1644; J3370; J3372; J3490; J7030; J7120

== ENCOUNTER 2024-04-04 18:27 | Inpatient (IN) | payer MEDICARE, MEDICAID ==
[~2024-04-04] VITALS: Ht 170.2 cm; Wt 41.0 kg
[~2024-04-04 18:27] MED LIST changes: -BACL20TA PO; +BACL20TA4 PO; +LACT1CAP26 PO; +PANT40TA54 PO; +VANC750F IV
[2024-04-04 20:02] LABS: BASOPHILS # (AUTO) 0.1 X10'3 (0-0.2); EOSINOPHILS # (AUTO) 0.1 X10'3 (0-0.9); EOSINOPHILS % (AUTO) 1.2 % (0-6); HEMATOCRIT 25.6 % (35.0-45.0); HEMOGLOBIN 8.6 g/dl (12.0-16.0); LYMPHOCYTES # (AUTO) 1.3 X10'3 (1.1-4.8); LYMPHOCYTES % (AUTO) 11.4 % (21-51); MEAN CORPUSCULAR HEMOGLOBIN 27.5 PG (27.0-31.0); MEAN CORPUSCULAR HGB CONC 33.5 g/dL (33.0-36.5); MONOCYTES # (AUTO) 0.9 X10'3 (0-0.9); MONOCYTES % (AUTO) 7.9 % (2-12); NEUTROPHILS # (AUTO) 9.3 X10'3 (1.8-7.7); NEUTROPHILS % (AUTO) 78.5 % (42-75); PLATELET COUNT 485 X10'3 (140-440); RED BLOOD COUNT 3.12 X10'6 (4.20-5.60); RED CELL DISTRIBUTION WIDTH 14.8 % (11.5-14.5); WHITE BLOOD COUNT 11.8 X10'3 (4.5-11.0)
[2024-04-04 20:25] LABS: ALANINE AMINOTRANSFERASE 22 U/L (12-78); ALBUMIN 2.5 G/DL (3.4-5.0); ALBUMIN/GLOBULIN RATIO 0.5 (1.1-1.5); ALKALINE PHOSPHATASE 88 IU/L (46-116); ANION GAP 7 (8-16); ASPARTATE AMINO TRANSFERASE 26 U/L (10-37); BILIRUBIN,DIRECT 0.1 MG/DL (0-0.3); BILIRUBIN,TOTAL 0.3 MG/DL (0.1-1.0); BLOOD UREA NITROGEN 16 MG/DL (7-18); BUN/CREATININE RATIO 26.2 (10.0-20.0); CALCIUM 9.3 MG/DL (8.5-10.1); CHLORIDE 104 MMOL/L (99-107); CREATININE 0.61 MG/DL (0.40-0.90); GLUCOSE 141 MG/DL (70-104); POTASSIUM 4.1 MMOL/L (3.5-5.1); SODIUM 140 MMOL/L (135-145); TOTAL PROTEIN 7.3 G/DL (6.4-8.2); eCRCL 63 ML/MIN; eGFR > 90 ML/MIN
[2024-04-05] VITALS (7 sets, daily range): BP systolic 107–140; BP diastolic 52–79; PULSE 80–107; RESP 14–18; TEMP 98–98.5; O2SAT 92–97
[2024-04-05] MEDS ORDERED: mag hydrox/Alum hydrox/simeth 30ml oral suspension PO PRN (00:15)
[2024-04-05] MEDS ORDERED: magnesium Cl slow-release 64mg tablet PO PRN (00:15)
[2024-04-05] MEDS ORDERED: magnesium hydroxide 30ml (MOM) UD suspension PO PRN (00:15)
[2024-04-05] MEDS ORDERED: acetaminophen 325mg tablet PO PRN (00:15)
[2024-04-05] MEDS ORDERED: ondansetron/PF 4mg/2ml inj IV PRN (00:15)
[2024-04-05] MEDS ORDERED: morphine 2 MG/ML inj. syringe IV PRN ×2 (00:15)
[2024-04-05] MEDS ORDERED: potassium Cl 20 mEq SR tablet PO PRN ×2 (00:15)
[2024-04-05] MEDS ORDERED: magnesium sulf-water 4G/100mL 100 ML IV PRN (00:15)
[2024-04-05] MEDS ORDERED: potassium Cl 40MEQ/1/2NS 520ml 520 ML IV PRN (00:15)
[2024-04-05] MEDS ORDERED: magnesium sulf-water 2g/50mL 50 ML IV PRN (00:15)
[2024-04-05] MEDS: normal saline 1000ml 1,000 ML IV SCH (01:16)
[2024-04-05] MEDS: zolpidem 5mg tablet PO PRN (01:20)
[2024-04-05] MEDS: VANCOMYCIN/H2O 750mg/150mL PB 150 ML IV ONE (02:03)
[2024-04-05 06:30] LABS: % IRON SATURATION 6 % (11-46); IRON 12 UG/DL (49-151); TOTAL IRON BINDING CAPACITY 211 UG/DL (259-388)
[2024-04-05] MEDS ORDERED: VANCOMYCIN IV SCH (08:00)
[2024-04-05] MEDS ORDERED: DEXTROSE ISO OSM IV SCH (08:00)
[2024-04-05] MEDS: docusate sod 100mg capsule PO SCH (08:00)
[2024-04-05] MEDS: K and/or MAG REPLACEMENT MC SCH (08:00)
[2024-04-05] MEDS: calcium carbonate/vitamin D3 tablet PO SCH (08:58)
[2024-04-05] MEDS: cholecalciferol (vitamin D3) 1,000 unit (25mcg) tablet PO SCH (08:59)
[2024-04-05] MEDS: lactobacillus rhamnosus 10,000 MMU CELLS/CAPSULE PO SCH (08:59)
[2024-04-05] MEDS: pantoprazole 40mg Tablet.DR PO ONE (11:12)
[2024-04-05] MEDS: baclofen 10mg tablet PO ONE (11:16)
[2024-04-05] MEDS: traMADol 50MG tablet PO PRN (11:16)
[2024-04-05] MEDS ORDERED: VANCOMYCIN/WATER FOR INJ (PEG) 750MG/150 ML IVPB IV SCH (12:00)
[2024-04-05] MEDS: VANCOMYCIN 1GM 200ML H20 (PEG) 200 ML IV SCH (12:51)
[2024-04-05] MEDS ORDERED: RIFA300C65 PO (20:44)
[2024-04-05] MEDS: baclofen 10mg tablet PO SCH (20:50)
[2024-04-05] MEDS: rifampin 300mg capsule PO SCH (22:23)
[2024-04-06 06:22] LABS: BASOPHILS # (AUTO) 0.1 X10'3 (0-0.2); BASOPHILS % (AUTO) 0.5 % (0-1); EOSINOPHILS # (AUTO) 0.1 X10'3 (0-0.9); EOSINOPHILS % (AUTO) 0.7 % (0-6); HEMATOCRIT 23.6 % (35.0-45.0); HEMOGLOBIN 7.6 g/dl (12.0-16.0); LYMPHOCYTES # (AUTO) 1.5 X10'3 (1.1-4.8); LYMPHOCYTES % (AUTO) 11.7 % (21-51); MEAN CORPUSCULAR HEMOGLOBIN 26.9 PG (27.0-31.0); MEAN CORPUSCULAR HGB CONC 32.4 g/dL (33.0-36.5); MEAN CORPUSCULAR VOLUME 83.3 FL (78-98); MEAN PLATELET VOLUME 7.3 FL (7.4-10.4); MONOCYTES # (AUTO) 1.3 X10'3 (0-0.9); NEUTROPHILS # (AUTO) 9.6 X10'3 (1.8-7.7); NEUTROPHILS % (AUTO) 77.1 % (42-75); PLATELET COUNT 413 X10'3 (140-440); RED BLOOD COUNT 2.83 X10'6 (4.20-5.60); WHITE BLOOD COUNT 12.5 X10'3 (4.5-11.0)
[2024-04-06 06:26] LABS: ANION GAP 7 (8-16); BLOOD UREA NITROGEN 14 MG/DL (7-18); BUN/CREATININE RATIO 33.3 (10.0-20.0); CALCIUM 9.1 MG/DL (8.5-10.1); CHLORIDE 102 MMOL/L (99-107); CREATININE 0.42 MG/DL (0.40-0.90); GLUCOSE 106 MG/DL (70-104); MAGNESIUM 1.8 MG/DL (1.5-2.4); SODIUM 136 MMOL/L (135-145); TOTAL CARBON DIOXIDE 27.3 MMOL/L (24-32); eCRCL 92 ML/MIN; eGFR > 90 ML/MIN
[2024-04-06 07:30] VITALS: RESP 18; O2SAT 97
[2024-04-06] MEDS: pantoprazole 40mg Tablet.DR PO SCH (07:37)
[2024-04-06] MEDS: baclofen 10mg tablet PO SCH (07:39)
[2024-04-06 08:33] VITALS: PULSE 115; RESP 18; TEMP 98.6; O2SAT 97
[2024-04-06 09:23] VITALS: RESP 18; O2SAT 97
[2024-04-06] MEDS: VANCOMYCIN LEVEL IV ONE (11:30)
[2024-04-06] MEDS: HYDROcodone/acetaminophen 5mg/325mg tablet PO PRN (12:35)
[2024-04-06] MEDS: VANCOMYCIN/WATER FOR INJ (PEG) 1.25GM/250 ML IVPB IV SCH (14:04)
[2024-04-06] MEDS: iron sucrose complex injection 300 MG in normal saline 250ml IV soln 250 ML IV SCH (17:25)
[2024-04-06 18:00] VITALS: BP 148/78; PULSE 90; RESP 18; TEMP 97.9; O2SAT 97
[2024-04-06 20:00] VITALS: RESP 18; O2SAT 97
[2024-04-06 22:00] VITALS: BP 124/70; PULSE 119; RESP 17; TEMP 99; O2SAT 98
[2024-04-06] MEDS: heparin, porcine 5000 units/ml vial SQ SCH (22:17)
[2024-04-07 06:00] VITALS: BP 105/60; PULSE 87; RESP 15; TEMP 98.9; O2SAT 99
[2024-04-07] MEDS: HYDROcodone/acetaminophen 10/325mg tab PO PRN (06:02)
[2024-04-07 07:17] LABS: ALBUMIN 1.9 G/DL (3.4-5.0); ANION GAP 9 (8-16); BASOPHILS # (AUTO) 0.1 X10'3 (0-0.2); BLOOD UREA NITROGEN 18 MG/DL (7-18); CALCIUM 8.5 MG/DL (8.5-10.1); CHLORIDE 105 MMOL/L (99-107); EOSINOPHILS # (AUTO) 0.1 X10'3 (0-0.9); EOSINOPHILS % (AUTO) 1.2 % (0-6); GLUCOSE 94 MG/DL (70-104); HEMATOCRIT 23.2 % (35.0-45.0); HEMOGLOBIN 7.3 g/dl (12.0-16.0); LYMPHOCYTES # (AUTO) 1.5 X10'3 (1.1-4.8); LYMPHOCYTES % (AUTO) 13.9 % (21-51); MAGNESIUM 1.8 MG/DL (1.5-2.4); MEAN CORPUSCULAR HEMOGLOBIN 27.1 PG (27.0-31.0); MEAN CORPUSCULAR HGB CONC 31.6 g/dL (33.0-36.5); MEAN CORPUSCULAR VOLUME 85.6 FL (78-98); MEAN PLATELET VOLUME 7.6 FL (7.4-10.4); MONOCYTES # (AUTO) 0.9 X10'3 (0-0.9); MONOCYTES % (AUTO) 8.8 % (2-12); NEUTROPHILS % (AUTO) 75.1 % (42-75); PLATELET COUNT 395 X10'3 (140-440); RED CELL DISTRIBUTION WIDTH 15.5 % (11.5-14.5); SODIUM 138 MMOL/L (135-145); TOTAL CARBON DIOXIDE 24.5 MMOL/L (24-32); WHITE BLOOD COUNT 10.7 X10'3 (4.5-11.0); eCRCL 97 ML/MIN; eGFR > 90 ML/MIN
[2024-04-07 18:00] VITALS: BP 116/63; PULSE 109; RESP 16; TEMP 97.6; O2SAT 96
[2024-04-07 19:55] VITALS: RESP 16; O2SAT 96
[2024-04-07 22:00] VITALS: BP 112/67; PULSE 97; RESP 20; TEMP 97.8; O2SAT 100
[2024-04-08] VITALS (20 sets, daily range): BP systolic 101–132; BP diastolic 38–98; PULSE 81–106; RESP 11–18; TEMP 98–99.4; O2SAT 92–100
[2024-04-08 01:28] LABS: BASOPHILS # (AUTO) 0.1 X10'3 (0-0.2); BASOPHILS % (AUTO) 1.1 % (0-1); EOSINOPHILS # (AUTO) 0.2 X10'3 (0-0.9); EOSINOPHILS % (AUTO) 2.4 % (0-6); HEMATOCRIT 24.6 % (35.0-45.0); LYMPHOCYTES # (AUTO) 1.9 X10'3 (1.1-4.8); LYMPHOCYTES % (AUTO) 20.6 % (21-51); MEAN CORPUSCULAR HEMOGLOBIN 27.1 PG (27.0-31.0); MEAN CORPUSCULAR HGB CONC 32.6 g/dL (33.0-36.5); MEAN CORPUSCULAR VOLUME 83.2 FL (78-98); MEAN PLATELET VOLUME 7.1 FL (7.4-10.4); MONOCYTES # (AUTO) 0.8 X10'3 (0-0.9); MONOCYTES % (AUTO) 8.7 % (2-12); NEUTROPHILS # (AUTO) 6.1 X10'3 (1.8-7.7); NEUTROPHILS % (AUTO) 67.2 % (42-75); PLATELET COUNT 484 X10'3 (140-440); RED BLOOD COUNT 2.96 X10'6 (4.20-5.60); RED CELL DISTRIBUTION WIDTH 15.1 % (11.5-14.5); WHITE BLOOD COUNT 9.1 X10'3 (4.5-11.0)
[2024-04-08] MEDS: VANCOMYCIN LEVEL IV ONE (01:29)
[2024-04-08 01:40] LABS: INR 1.1 INR; PROTHROMBIN TIME 11.6 SECONDS (9.0-12.0)
[2024-04-08 02:11] LABS: ALBUMIN 2.1 G/DL (3.4-5.0); ANION GAP 4 (8-16); BLOOD UREA NITROGEN 21 MG/DL (7-18); BUN/CREATININE RATIO 44.7 (10.0-20.0); CALCIUM 8.8 MG/DL (8.5-10.1); CHLORIDE 106 MMOL/L (99-107); CREATININE 0.47 MG/DL (0.40-0.90); GLUCOSE 96 MG/DL (70-104); MAGNESIUM 1.8 MG/DL (1.5-2.4); POTASSIUM 4.2 MMOL/L (3.5-5.1); SODIUM 140 MMOL/L (135-145); TOTAL CARBON DIOXIDE 29.9 MMOL/L (24-32); VANCOMYCIN,TROUGH 18.1 ug/mL (10.0-20.0); eCRCL 82 ML/MIN; eGFR > 90 ML/MIN
[2024-04-08] MEDS ORDERED: BUPIVAcaine 2.5mg/ml inj 50ml vial (contains preservative) ONE (10:42)
[2024-04-08] MEDS ORDERED: sevoflurane 250ml liquid IH ONE (11:26)
[2024-04-08] MEDS ORDERED: midazolam 1 mg/ML 2ml injection ONE (11:30)
[2024-04-08] MEDS ORDERED: fentaNYL/PF 50MCG/1 ML 2ML syringe ONE (11:30)
[2024-04-08] MEDS ORDERED: propofol inj 20 ML IV ONE (12:09)
[2024-04-08] MEDS ORDERED: phenylephrine 10mg/ml inj. ONE (12:10)
[2024-04-08] MEDS ORDERED: ePHEDrine 50MG/ML INJ. ONE (12:10)
[2024-04-08] MEDS ORDERED: ondansetron/PF 4mg/2ml inj IV PRN (12:20)
[2024-04-08] MEDS ORDERED: meperidine/PF 25mg/ml syringe IV PRN ×3 (12:20)
[2024-04-08] MEDS ORDERED: morphine 4 MG/ML inj SYRINge IV PRN (12:20)
[2024-04-08] MEDS: ringers solution, lacted 1,000 ML IV SCH (12:20)
[2024-04-08] MEDS ORDERED: proCHLORperazine 10 MG/2 ml inj IV PRN (12:20)
[2024-04-08] MEDS ORDERED: morphine 2 MG/ML inj. syringe IV PRN (12:20)
[2024-04-09 03:44] LABS: BASOPHILS % (AUTO) 0.3 % (0-1); EOSINOPHILS % (AUTO) 0.5 % (0-6); LYMPHOCYTES # (AUTO) 1.4 X10'3 (1.1-4.8); LYMPHOCYTES % (AUTO) 14.2 % (21-51); MEAN CORPUSCULAR HEMOGLOBIN 26.5 PG (27.0-31.0); MEAN CORPUSCULAR HGB CONC 31.9 g/dL (33.0-36.5); MEAN CORPUSCULAR VOLUME 83.2 FL (78-98); MEAN PLATELET VOLUME 7.3 FL (7.4-10.4); MONOCYTES # (AUTO) 1.1 X10'3 (0-0.9); NEUTROPHILS # (AUTO) 7.4 X10'3 (1.8-7.7); PLATELET COUNT 483 X10'3 (140-440); RED BLOOD COUNT 2.62 X10'6 (4.20-5.60); RED CELL DISTRIBUTION WIDTH 15.3 % (11.5-14.5)
[2024-04-09 03:50] LABS: HEMATOCRIT 21.8 % (35.0-45.0); HEMOGLOBIN 6.9 g/dl (12.0-16.0)
[2024-04-09 03:55] LABS: ALBUMIN 1.9 G/DL (3.4-5.0); ANION GAP 6 (8-16); BLOOD UREA NITROGEN 16 MG/DL (7-18); BUN/CREATININE RATIO 32.7 (10.0-20.0); CALCIUM 8.1 MG/DL (8.5-10.1); CHLORIDE 105 MMOL/L (99-107); CREATININE 0.49 MG/DL (0.40-0.90); GLUCOSE 107 MG/DL (70-104); MAGNESIUM 1.6 MG/DL (1.5-2.4); POTASSIUM 3.8 MMOL/L (3.5-5.1); SODIUM 139 MMOL/L (135-145); TOTAL CARBON DIOXIDE 28.5 MMOL/L (24-32); eCRCL 79 ML/MIN; eGFR > 90 ML/MIN
[2024-04-09 06:00] VITALS: BP 111/50; PULSE 107; RESP 16; TEMP 98.8; O2SAT 99
[2024-04-09 09:15] VITALS: RESP 16; O2SAT 95
[2024-04-09 11:00] VITALS: BP 138/57; PULSE 60; RESP 18; TEMP 98.9; O2SAT 96
[2024-04-09 18:00] VITALS: BP 121/50; PULSE 96; RESP 16; TEMP 98.3; O2SAT 99
[2024-04-09 20:00] VITALS: RESP 16; O2SAT 99
[2024-04-09 22:00] VITALS: BP 126/55; PULSE 106; RESP 20; TEMP 98.6; O2SAT 99
[2024-04-10 05:09] LABS: ALBUMIN 1.9 G/DL (3.4-5.0); ANION GAP 3 (8-16); BLOOD UREA NITROGEN 14 MG/DL (7-18); BUN/CREATININE RATIO 32.6 (10.0-20.0); CALCIUM 8.5 MG/DL (8.5-10.1); CHLORIDE 106 MMOL/L (99-107); CREATININE 0.43 MG/DL (0.40-0.90); GLUCOSE 99 MG/DL (70-104); MAGNESIUM 1.7 MG/DL (1.5-2.4); POTASSIUM 3.9 MMOL/L (3.5-5.1); SODIUM 139 MMOL/L (135-145); TOTAL CARBON DIOXIDE 29.8 MMOL/L (24-32); eCRCL 90 ML/MIN; eGFR > 90 ML/MIN
[2024-04-10 06:00] VITALS: BP 112/59; PULSE 101; RESP 16; TEMP 97.4; O2SAT 99
[2024-04-10 07:07] LABS: BASOPHILS # (AUTO) 0.1 X10'3 (0-0.2); EOSINOPHILS # (AUTO) 0.2 X10'3 (0-0.9); EOSINOPHILS % (AUTO) 1.9 % (0-6); LYMPHOCYTES # (AUTO) 1.9 X10'3 (1.1-4.8); LYMPHOCYTES % (AUTO) 21.3 % (21-51); MEAN CORPUSCULAR HGB CONC 32.5 g/dL (33.0-36.5); MEAN CORPUSCULAR VOLUME 83.1 FL (78-98); MEAN PLATELET VOLUME 7.9 FL (7.4-10.4); MONOCYTES # (AUTO) 0.9 X10'3 (0-0.9); MONOCYTES % (AUTO) 9.9 % (2-12); NEUTROPHILS # (AUTO) 5.9 X10'3 (1.8-7.7); NEUTROPHILS % (AUTO) 65.9 % (42-75); PLATELET COUNT 516 X10'3 (140-440); RED CELL DISTRIBUTION WIDTH 15.3 % (11.5-14.5); WHITE BLOOD COUNT 8.9 X10'3 (4.5-11.0)
[2024-04-10 07:14] LABS: HEMATOCRIT 19.2 % (35.0-45.0); HEMOGLOBIN 6.2 g/dl (12.0-16.0)
[2024-04-10 10:00] VITALS: BP 110/49; PULSE 105; RESP 16; TEMP 97.2; O2SAT 100
[2024-04-10 18:00] VITALS: BP 105/50; PULSE 95; RESP 16; TEMP 98; O2SAT 97
[2024-04-10 20:00] VITALS: RESP 16; O2SAT 97
[2024-04-10 22:00] VITALS: BP 122/64; PULSE 110; RESP 16; TEMP 98.3; O2SAT 100
[2024-04-11 06:00] VITALS: BP 112/67; PULSE 82; RESP 18; TEMP 98.3; O2SAT 100
[2024-04-11] MEDS ORDERED: morphine 2 MG/ML inj. syringe IV PRN (07:20)
[2024-04-11 08:00] VITALS: RESP 16; O2SAT 100
[2024-04-11 08:41] LABS: BASOPHILS # (AUTO) 0.1 X10'3 (0-0.2); BASOPHILS % (AUTO) 0.8 % (0-1); EOSINOPHILS # (AUTO) 0.2 X10'3 (0-0.9); EOSINOPHILS % (AUTO) 2.9 % (0-6); HEMOGLOBIN 7.2 g/dl (12.0-16.0); LYMPHOCYTES # (AUTO) 1.8 X10'3 (1.1-4.8); LYMPHOCYTES % (AUTO) 24.4 % (21-51); MEAN CORPUSCULAR HEMOGLOBIN 27.4 PG (27.0-31.0); MEAN CORPUSCULAR HGB CONC 32.9 g/dL (33.0-36.5); MEAN CORPUSCULAR VOLUME 83.2 FL (78-98); MEAN PLATELET VOLUME 7.2 FL (7.4-10.4); MONOCYTES # (AUTO) 0.6 X10'3 (0-0.9); MONOCYTES % (AUTO) 8.1 % (2-12); NEUTROPHILS # (AUTO) 4.7 X10'3 (1.8-7.7); NEUTROPHILS % (AUTO) 63.8 % (42-75); PLATELET COUNT 509 X10'3 (140-440); RED BLOOD COUNT 2.63 X10'6 (4.20-5.60); RED CELL DISTRIBUTION WIDTH 15.7 % (11.5-14.5); WHITE BLOOD COUNT 7.4 X10'3 (4.5-11.0)
[2024-04-11 08:46] LABS: ANION GAP 5 (8-16); BLOOD UREA NITROGEN 16 MG/DL (7-18); CALCIUM 9.2 MG/DL (8.5-10.1); CHLORIDE 105 MMOL/L (99-107); POTASSIUM 4.2 MMOL/L (3.5-5.1); SODIUM 140 MMOL/L (135-145); TOTAL CARBON DIOXIDE 30.5 MMOL/L (24-32); eCRCL 97 ML/MIN; eGFR > 90 ML/MIN
[2024-04-11 08:48] LABS: GLUCOSE 105 MG/DL (70-104)
[2024-04-11 08:51] LABS: HEMATOCRIT 21.9 % (35.0-45.0)
[2024-04-11 10:00] VITALS: BP 115/44; PULSE 76; RESP 17; TEMP 98; O2SAT 100
[2024-04-11 12:28] LABS: HIV ANTIBODY 1&2 RAPID NON-REACTIVE (Neg)
[2024-04-11] MEDS: JUVEN Shake w/Arg/Glut/Ca2+Bmb (Juven 19.3gm) pkt 240ml PO SCH (17:30)
[2024-04-11 18:00] VITALS: BP 118/57; PULSE 108; RESP 12; TEMP 98; O2SAT 98
[2024-04-11 20:00] VITALS: RESP 12; O2SAT 98
[2024-04-11 22:00] VITALS: BP 135/62; PULSE 100; RESP 14; TEMP 98.5; O2SAT 99
[2024-04-12 06:00] VITALS: BP 100/59; PULSE 79; RESP 16; TEMP 97.8; O2SAT 94
[2024-04-12] MEDS: lactose-reduced food (Ensure Enlive) - 237ml bottle PO SCH (07:30)
[2024-04-12 10:30] VITALS: RESP 16; O2SAT 94
[2024-04-12 11:00] VITALS: BP 100/63; PULSE 91; RESP 18; TEMP 98.4; O2SAT 100
[2024-04-12 12:07] LABS: BASOPHILS # (AUTO) 0.1 X10'3 (0-0.2); EOSINOPHILS # (AUTO) 0.2 X10'3 (0-0.9); EOSINOPHILS % (AUTO) 2.2 % (0-6); HEMATOCRIT 22.4 % (35.0-45.0); HEMOGLOBIN 7.1 g/dl (12.0-16.0); LYMPHOCYTES # (AUTO) 1.1 X10'3 (1.1-4.8); LYMPHOCYTES % (AUTO) 15.6 % (21-51); MEAN CORPUSCULAR HEMOGLOBIN 26.5 PG (27.0-31.0); MEAN CORPUSCULAR HGB CONC 31.7 g/dL (33.0-36.5); MEAN CORPUSCULAR VOLUME 83.5 FL (78-98); MEAN PLATELET VOLUME 7.2 FL (7.4-10.4); MONOCYTES # (AUTO) 0.6 X10'3 (0-0.9); MONOCYTES % (AUTO) 7.7 % (2-12); NEUTROPHILS # (AUTO) 5.4 X10'3 (1.8-7.7); NEUTROPHILS % (AUTO) 73.5 % (42-75); PLATELET COUNT 552 X10'3 (140-440); RED BLOOD COUNT 2.68 X10'6 (4.20-5.60); WHITE BLOOD COUNT 7.3 X10'3 (4.5-11.0)
[2024-04-12 12:17] LABS: ALBUMIN 2.1 G/DL (3.4-5.0); ANION GAP 2 (8-16); BLOOD UREA NITROGEN 14 MG/DL (7-18); BUN/CREATININE RATIO 28.6 (10.0-20.0); CALCIUM 9.3 MG/DL (8.5-10.1); CHLORIDE 104 MMOL/L (99-107); CREATININE 0.49 MG/DL (0.40-0.90); GLUCOSE 111 MG/DL (70-104); POTASSIUM 3.8 MMOL/L (3.5-5.1); SODIUM 140 MMOL/L (135-145); TOTAL CARBON DIOXIDE 34.5 MMOL/L (24-32); eCRCL 79 ML/MIN; eGFR > 90 ML/MIN
[2024-04-12 18:00] VITALS: BP 114/66; PULSE 106; RESP 18; TEMP 98.5; O2SAT 100
[2024-04-12 20:00] VITALS: RESP 18; O2SAT 100
[2024-04-12 22:00] VITALS: BP 127/47; PULSE 90; RESP 18; TEMP 98.9; O2SAT 98
[2024-04-13 05:00] VITALS: BP 117/51; PULSE 80; RESP 16; RESP 78; TEMP 97.6; O2SAT 96
[2024-04-13 05:39] LABS: BASOPHILS # (AUTO) 0.1 X10'3 (0-0.2); BASOPHILS % (AUTO) 1.2 % (0-1); EOSINOPHILS # (AUTO) 0.2 X10'3 (0-0.9); EOSINOPHILS % (AUTO) 2.7 % (0-6); HEMATOCRIT 22.2 % (35.0-45.0); LYMPHOCYTES # (AUTO) 1.6 X10'3 (1.1-4.8); LYMPHOCYTES % (AUTO) 20.3 % (21-51); MEAN CORPUSCULAR HEMOGLOBIN 26.5 PG (27.0-31.0); MEAN CORPUSCULAR HGB CONC 31.3 g/dL (33.0-36.5); MEAN CORPUSCULAR VOLUME 84.5 FL (78-98); MEAN PLATELET VOLUME 7.1 FL (7.4-10.4); MONOCYTES # (AUTO) 0.6 X10'3 (0-0.9); MONOCYTES % (AUTO) 7.7 % (2-12); NEUTROPHILS # (AUTO) 5.5 X10'3 (1.8-7.7); NEUTROPHILS % (AUTO) 68.1 % (42-75); PLATELET COUNT 587 X10'3 (140-440); RED BLOOD COUNT 2.63 X10'6 (4.20-5.60); RED CELL DISTRIBUTION WIDTH 16.2 % (11.5-14.5); WHITE BLOOD COUNT 8.1 X10'3 (4.5-11.0)
[2024-04-13 06:15] LABS: ANION GAP 7 (8-16); BLOOD UREA NITROGEN 15 MG/DL (7-18); BUN/CREATININE RATIO 34.9 (10.0-20.0); CALCIUM 9.4 MG/DL (8.5-10.1); CHLORIDE 104 MMOL/L (99-107); CREATININE 0.43 MG/DL (0.40-0.90); GLUCOSE 106 MG/DL (70-104); POTASSIUM 4.5 MMOL/L (3.5-5.1); SODIUM 141 MMOL/L (135-145); TOTAL CARBON DIOXIDE 30.1 MMOL/L (24-32); eCRCL 90 ML/MIN; eGFR > 90 ML/MIN
[2024-04-13 08:30] VITALS: RESP 18; O2SAT 98
[2024-04-13 10:00] VITALS: BP 102/51; PULSE 102; RESP 18; TEMP 97.6; O2SAT 100
[2024-04-13 14:49] VITALS: RESP 18
== END 2024-04-13 17:43 | disposition home health service (06) | DRG 474 ==
LOC: ER 18:28 → ED HOLD 04-05 00:17 → EDBEDREQ 04-05 01:05 → SUR 3N 04-05 01:50
PROVIDERS: ADMIT Surgery Surgical Critical Care; ATTEND Family Medicine
PROC: 0Y6D0Z2 Detachment at Left Upper Leg, Mid, Open Approach (ICD-10-PCS; principal; 2024-04-08 11:26)
DX: M86.8X5 Other osteomyelitis, thigh (principal); E43 Unspecified severe protein-calorie malnutrition; G82.20 Paraplegia, unspecified; M80.052A Age-related osteoporosis with current pathological fracture, left femur, initial encounter for fracture; M00.9 Pyogenic arthritis, unspecified; Z68.1 Body mass index [BMI] 19.9 or less, adult; K59.2 Neurogenic bowel, not elsewhere classified; K21.9 Gastro-esophageal reflux disease without esophagitis; E88.09 Other disorders of plasma-protein metabolism, not elsewhere classified; Z88.8 Allergy status to other drugs, medicaments and biological substances; Z90.49 Acquired absence of other specified parts of digestive tract; Z90.710 Acquired absence of both cervix and uterus; Z99.3 Dependence on wheelchair; N31.9 Neuromuscular dysfunction of bladder, unspecified; Z85.3 Personal history of malignant neoplasm of breast
CPT/HCPCS: 36415; 71045; 71250; 73552; 80048; 80076; 80202; 82948; 83036; 83540; 83550; 83605; 83735; 84466; 85025; 85610; 86703; 86885; 86900; 86901; 87040; 87081; 87502; 87503; 88307; 93005; 97161; 97530; 99285; A4618; A5200; A6212; A6222; A6253; A6446; A6449; A7000; G0378; J1644; J2250; J2370; J2704; J3010; J3372; J3490; J7030; J7120

== ENCOUNTER 2024-04-12 | Outpatient (CLI) | payer MEDICARE, MEDICAID ==
[~2024-04-12] VITALS: Ht 167.6 cm; Wt 47.6 kg
[~2024-04-12] MED LIST changes: +RIFA300C65 PO; +ceFAZolin 2gm in dextrose, iso 50 ML IV ONE; +ePHEDrine 50MG/ML INJ. ONE; +famotidine 20mg tablet PO ONE; +fentaNYL/PF 50MCG/1 ML 2ML syringe ONE; +midazolam 1 mg/ML 2ml injection ONE; +propofol inj 20 ML IV ONE; +ringers solution, lacted 1,000 ML IV SCH; +sevoflurane 250ml liquid IH ONE
== END 2024-04-12 23:59 | disposition home or self-care (01) ==
LOC: LAB
PROVIDERS: ATTEND Orthopaedic Surgery Hand Surgery
DX: Z01.812 Encounter for preprocedural laboratory examination (principal); T84.7XXA Infection and inflammatory reaction due to other internal orthopedic prosthetic devices, implants and grafts, initial encounter; M25.562 Pain in left knee; X58.XXXA Exposure to other specified factors, initial encounter; Y84.8 Other medical procedures as the cause of abnormal reaction of the patient, or of later complication, without mention of misadventure at the time of the procedure; Y92.89 Other specified places as the place of occurrence of the external cause
CPT/HCPCS: 36415; 86480; J0690; J2003; J2250; J2704; J3010; J3490; J7120